=== PATIENT | male | born 1960 | race Caucasian/White ===

== ENCOUNTER 2017-03-03 20:43 | Emergency (ER) | payer OTHER ==
[2017-03-03] MEDS ORDERED: HYDROcodone/ACETAMIN 5-325 MG* 1 TAB PO ONE (21:04)
--- NOTE | 2017-03-03 21:15 | UC ---
Truncal Trauma HPI - HPI Summary HPI Summary: Fell into farm equipment this evening, scraped L lateral abdomen and injured L anterior chest. Pain with cough, deep breaths, movement, and sneezing. Denies feeling SOB. Has been off plavix for more than 2 weeks because he just got endoscopy done and is getting colonoscopy done later this month. - History Of Current Complaint Chief Complaint: UCChestPain Stated Complaint: FELL-LFT RIB AREA PAIN Time Seen by Provider: 03/03/17 20:50 Hx Obtained From: Patient Onset/Duration: Sudden Onset Onset Of Pain: Immediate Severity Initially: Moderate Severity Currently: Moderate Mechanism Of Injury: Direct Blow, Fall From A Standing Position Aggravating Factor(s): Movement, Deep Breathing, Cough Alleviating factor(s): Ice, Compression, Shallow Breathing Associated Signs And Symptoms: Negative: Fever, Nausea - Allergies/Home Medications Allergies/Adverse Reactions: Allergies Allergy/AdvReac Type Severity Reaction Status Date / Time Bee Venom Allergy Swelling Verified 03/03/17 20:56 Pseudoephedrine Allergy Rash And Verified 03/03/17 20:56 [From Sudafed] Itching Vinegar AdvReac Vomiting Uncoded 03/03/17 20:56 Home Medications: Home Medications Albiglutide [Tanzeum] 30 mg SC WEEKLY 03/03/17 [History Confirmed 03/03/17] Metformin HCl [Glucophage] 1,000 mg PO BID 03/03/17 [History Confirmed 03/03/17] PMH/Surg Hx/FS Hx/Imm Hx Endocrine History Of: Reports: Diabetes Denies: Thyroid Disease Cardiovascular History Of: Reports: Cardiac Disorders, Hypertension Denies: Pacemaker/ICD Respiratory History Of: Reports: Asthma Denies: COPD GI/ History Of: Denies: Ulcer - Surgical History Surgical History: Yes Surgery Procedure, Year, and Place: Left shoulder repair 2004 ([place]), Hernia repair 1999, cardiac angiogram early to mid . Cardiac Stint 2014. RIGHT SHOULDER SX - Family History Known Family History: Positive: Cardiac Disease, Hypertension, Diabetes, Respiratory Disease - Asthmna. Negative: Other - GOUT - Social History Lives: With Family Alcohol Use: Rare Substance Use Type: None Smoking Status (MU): Former Smoker Type: Cigarettes Amount Used/How Often: 3 PPD Length of Time of Smoking/Using Tobacco: 30 Years Have You Smoked in the Last Year: No When Did the Patient Quit Smoking/Using Tobacco: 1976 - Immunization History Most Recent Influenza Vaccination: no Review of Systems Constitutional: Negative Skin: Negative Eyes: Negative ENT: Negative Respiratory: Negative Cardiovascular: Negative Gastrointestinal: Negative Genitourinary: Negative Motor: Negative Neurovascular: Negative Musculoskeletal: Arthralgia - L ribs Neurological: Negative Psychological: Negative All Other Systems Reviewed And Are Negative: Yes Physical Exam Triage Information Reviewed: Yes Appearance: Pain Distress - with cough, movement, Obese Vital Signs: Initial Vital Signs Temp 98.3 F 03/03/17 20:48 Pulse 73 03/03/17 20:48 Resp 18 03/03/17 20:48 Pulse Ox 98 03/03/17 20:48 Vital Signs Reviewed: Yes Eye Exam: Normal Eyes: Positive: Conjunctiva Clear ENT Exam: Normal ENT: Positive: Normal ENT inspection, Hearing grossly normal, Pharynx normal, TMs normal Dental Exam: Other - edentulous on top Neck exam: Normal Neck: Positive: Supple, Nontender, No Lymphadenopathy Respiratory: Positive: No respiratory distress. Negative: Chest non-tender - L anterior chest tenderness Cardiovascular Exam: Normal, Other - exam limited by obesity Cardiovascular: Positive: RRR Musculoskeletal Exam: Other - anterior chest wall pain with indirect stress Musculoskeletal: Positive: Strength Intact, ROM Intact Neurological Exam: Normal Neurological: Positive: Alert Psychological Exam: Normal Skin Exam: Other - large abrasion L abdomen Truncal Trauma Course/Dx - Differential Dx/Diagnosis Provider Diagnoses: L anterior rib fracture Discharge - Discharge Plan Condition: Stable Disposition: HOME Prescriptions: HYDROcodone/ACETAMIN 5-325 MG* [[place] 5-325 TAB*] 1 tab PO Q4H PRN #30 tab MDD 6 PRN Reason: Pain Patient Education Materials: Rib Fracture (ED) Referrals: TRENTON Mendoza [Primary Care Provider] - Additional Instructions: Your rib x-rays were read as normal (no broken ribs), but your pain level suggests you may have a small bony injury in your chest. Please call your GI doctor and/or your primary care provider to find out if you can take naproxen for your pain as well. Keep walking around and take as many deep breaths as you can stand.
--- NOTE | 2017-03-03 21:37 | RAD ---
INDICATION: Left rib injury. TECHNIQUE: 4 views of the left ribs and dual-energy PA views of the chest were obtained. FINDINGS: No fracture or significant focal osseous abnormality is seen. The heart is within normal limits in size. The lungs are clear. There is no evidence for pneumothorax or pleural effusion. IMPRESSION: NO EVIDENCE FOR FRACTURE.
== END 2017-03-03 21:43 | disposition home or self-care (01) ==
LOC: UCCORT 20:43
DX: S29.9XXA Unspecified injury of thorax, initial encounter (principal); W18.09XA Striking against other object with subsequent fall, initial encounter; Y93.9 Activity, unspecified; Y92.9 Unspecified place or not applicable; E11.9 Type 2 diabetes mellitus without complications; Z79.84 Long term (current) use of oral hypoglycemic drugs; I10 Essential (primary) hypertension; J45.909 Unspecified asthma, uncomplicated; E66.9 Obesity, unspecified; Z88.8 Allergy status to other drugs, medicaments and biological substances; Z91.030 Bee allergy status; Z87.891 Personal history of nicotine dependence
CPT/HCPCS: 99212; G0463

== ENCOUNTER 2017-08-21 19:00 | Emergency (ER) | payer OTHER ==
[2017-08-21 19:31] VITALS: BP 117/73
[2017-08-21] MEDS ORDERED: Ibuprofen TAB* 600 MG PO ONE (19:42)
--- NOTE | 2017-08-21 19:44 | UC ---
Lower Extremity/Ankle HPI - HPI Summary HPI Summary: 56 yo male injured left ankle today eileen gifford fell and hit his ankle unable to bear wt - History of Current Complaint Chief Complaint: UCLowerExtremity Stated Complaint: LEFT ANKLE INJURY Time Seen by Provider: 08/21/17 19:39 Hx Obtained From: Patient Onset/Duration: Sudden Onset, Lasting Hours Severity Initially: Moderate Severity Currently: Moderate Pain Intensity: 6 Pain Scale Used: 0-10 Numeric Aggravating Factor(s): Standing, Ambulation Alleviating Factor(s): Rest, Elevation Able to Bear Weight: No - Allergies/Home Medications Allergies/Adverse Reactions: Allergies Allergy/AdvReac Type Severity Reaction Status Date / Time Bee Venom Allergy Swelling Verified 08/21/17 19:33 Pseudoephedrine Allergy Rash And Verified 08/21/17 19:33 [From Sudafed] Itching Vinegar AdvReac Vomiting Uncoded 08/21/17 19:33 Home Medications: Home Medications Multiple Vitamins W/ Minerals [Multivitamin Adult] 2 chw PO QAM 08/21/17 [ History Confirmed 08/21/17] Multiple Vitamins W/ Minerals [Multivitamin Adults] 1 tab PO DAILY 08/21/17 [ History Confirmed 08/21/17] PMH/Surg Hx/FS Hx/Imm Hx Previously Healthy: Yes Cardiovascular History: Hypertension Respiratory History: Asthma - Surgical History Surgical History: Yes Surgery Procedure, Year, and Place: Left shoulder repair 2004 ([place]), Hernia repair 1999, cardiac angiogram early to mid ; gastric bypass . Cardiac Stent 2014. RIGHT SHOULDER SX - Family History Known Family History: Positive: Cardiac Disease, Hypertension, Diabetes, Respiratory Disease - Asthmna. Negative: Other - GOUT - Social History Alcohol Use: None Substance Use Type: None Smoking Status (MU): Former Smoker Type: Cigarettes Amount Used/How Often: 3 PPD Length of Time of Smoking/Using Tobacco: 30 Years Have You Smoked in the Last Year: No When Did the Patient Quit Smoking/Using Tobacco: 1976 - Immunization History Most Recent Influenza Vaccination: no Review of Systems Constitutional: Negative Skin: Negative Eyes: Negative ENT: Negative Respiratory: Negative Cardiovascular: Negative Gastrointestinal: Negative Genitourinary: Negative Motor: Negative Neurovascular: Negative Musculoskeletal: Arthralgia Neurological: Negative Psychological: Negative Is Patient Immunocompromised?: No All Other Systems Reviewed And Are Negative: Yes Physical Exam Triage Information Reviewed: Yes Appearance: Well-Appearing, No Pain Distress, Well-Nourished Vital Signs: Initial Vital Signs Temp 98.3 F 08/21/17 19:25 Pulse 72 08/21/17 19:25 Resp 24 08/21/17 19:25 BP 117/73 08/21/17 19:25 Vital Signs Reviewed: Yes Eyes: Positive: Conjunctiva Clear ENT: Positive: Hearing grossly normal Dental Exam: Normal Neck: Positive: Supple, Nontender, No Lymphadenopathy Respiratory: Positive: Lungs clear, Normal breath sounds, No respiratory distress, No accessory muscle use Cardiovascular: Positive: RRR, No Murmur, Pulses Normal Abdomen Description: Positive: Nontender, No Organomegaly, Soft Musculoskeletal: Positive: ROM Limited @, Edema @ - MM Neurological: Positive: Alert Psychological Exam: Normal Skin Exam: Normal Diagnostics - Radiology No standard instances Xray Interpretation: No Acute Changes Radiology Interpretation Completed By: Radiologist Lower Extremity Course/Dx - Course Course Of Treatment: alfred applied by me - Differential Dx/Diagnosis Provider Diagnoses: left ankle contusion Discharge - Discharge Plan Condition: Stable Disposition: HOME Patient Education Materials: Crutch Instructions (ED), Contusion in Adults (ED) , RICE Therapy (ED) Referrals: Catherine Pérez MD [Primary Care Provider] - Additional Instructions: recheck in 1-2 weeks if not better
--- NOTE | 2017-08-21 20:08 | RAD ---
INDICATION: Left ankle injury COMPARISON: None TECHNIQUE: AP, lateral, and oblique views were obtained. FINDINGS: There is medial soft tissue swelling. There is no acute fracture. Ankle mortise is intact. There are vascular calcifications. IMPRESSION: MEDIAL SOFT TISSUE SWELLING. NO ACUTE BONY FINDINGS
== END 2017-08-21 20:48 | disposition home or self-care (01) ==
LOC: UCCORT 19:00
DX: S90.02XA Contusion of left ankle, initial encounter (principal); I10 Essential (primary) hypertension; W22.8XXA Striking against or struck by other objects, initial encounter; Z87.891 Personal history of nicotine dependence; Z91.030 Bee allergy status; Z88.8 Allergy status to other drugs, medicaments and biological substances; Z91.048 Other nonmedicinal substance allergy status
CPT/HCPCS: 99212; A9270-GY; G0463

== ENCOUNTER 2017-09-19 20:10 | Emergency (ER) | payer OTHER ==
[2017-09-19 20:44] VITALS: BP 140/85
--- NOTE | 2017-09-19 20:44 | UC ---
Skin Complaint HPI - HPI Summary HPI Summary: 57 YEAR OLD FEMALE PRESENTS WITH COMPLAINS OF SEVERE DRY CRACKED HANDS. - History of Current Complaint Time Seen by Provider: 09/19/17 20:44 Stated Complaint: HANDS DRY AND SKIN CRACKING Hx Obtained From: Patient Onset/Duration: Sudden Onset Onset Severity: Moderate Current Severity: Moderate - Allergy/Home Medications Allergies/Adverse Reactions: Allergies Allergy/AdvReac Type Severity Reaction Status Date / Time Bee Venom Allergy Swelling Verified 09/19/17 20:44 Pseudoephedrine Allergy Rash And Verified 09/19/17 20:44 [From Sudafed] Itching Vinegar AdvReac Vomiting Uncoded 09/19/17 20:44 Review of Systems Constitutional: Negative Skin: Other - DRY AND CRACKED HANDS Eyes: Negative ENT: Negative Respiratory: Negative Cardiovascular: Negative Gastrointestinal: Negative Genitourinary: Negative Motor: Negative Neurovascular: Negative Musculoskeletal: Negative Neurological: Negative Psychological: Negative All Other Systems Reviewed And Are Negative: Yes PMH/Surg Hx/FS Hx/Imm Hx - Surgical History Surgical History: Yes Surgery Procedure, Year, and Place: Left shoulder repair 2004 ([place]), Hernia repair 1999, cardiac angiogram early to mid ; gastric bypass . Cardiac Stent 2014. RIGHT SHOULDER SX - Family History Known Family History: Positive: Cardiac Disease, Hypertension, Diabetes, Respiratory Disease - Asthmna. Negative: Other - GOUT - Social History Alcohol Use: None Substance Use Type: None Smoking Status (MU): Former Smoker Type: Cigarettes Amount Used/How Often: 3 PPD Length of Time of Smoking/Using Tobacco: 30 Years Have You Smoked in the Last Year: No When Did the Patient Quit Smoking/Using Tobacco: 1976 - Immunization History Most Recent Influenza Vaccination: no Physical Exam Triage Information Reviewed: Yes Vital Signs: Initial Vital Signs Temp 36.6 C 09/19/17 20:34 Pulse 61 09/19/17 20:34 Resp 22 09/19/17 20:34 BP 140/85 09/19/17 20:34 Vital Signs Reviewed: Yes Eye Exam: Normal ENT Exam: Normal Dental Exam: Normal Neck exam: Normal Neck: Positive: 1 Respiratory Exam: Normal Cardiovascular Exam: Normal Abdominal Exam: Normal Musculoskeletal Exam: Normal Neurological Exam: Normal Psychological Exam: Normal Skin: Positive: Other - DRY AND CRACKED HANDS Course/Dx - Diagnoses Provider Diagnoses: DRY AND CRACKED HANDS. ECZEMA Discharge - Discharge Plan Condition: Stable Disposition: HOME Prescriptions: Betamethasone Anna 0.1% ON(NF) [Betamethasone Anna 0.1% OINT(NF)] 1 applic TOPICAL TID PRN #90 gm PRN Reason: Pain Methylprednisolone [Medrol Dosepak 4 MG*] 4 mg PO .SEE GALLO INSTRUCTION #21 tab Referrals: TRENTON Mendoza [Primary Care Provider] - Doris Reeves [Medical Doctor] -
[2017-09-19] MEDS ORDERED: predniSONE TAB* 20 MG PO ONE (21:05)
[2017-09-19] MEDS ORDERED: Hydrocortisone 1% CREAM* 30 GM TUBE TOPICAL ONE (21:06)
== END 2017-09-19 21:21 | disposition home or self-care (01) ==
LOC: UCCORT 20:10
DX: L85.3 Xerosis cutis (principal); L30.9 Dermatitis, unspecified; Z95.5 Presence of coronary angioplasty implant and graft; Z98.84 Bariatric surgery status; Z87.891 Personal history of nicotine dependence
CPT/HCPCS: 99213; A9270-GY; G0463; J7512

== ENCOUNTER 2017-10-31 18:33 | Emergency (ER) | payer OTHER ==
[2017-10-31 19:07] VITALS: BP 121/68
--- NOTE | 2017-10-31 20:31 | RAD ---
INDICATION: Cough COMPARISON: Chest x-ray September 28, 2010 TECHNIQUE: PA and lateral dual-energy views were obtained. FINDINGS: Bones/Soft Tissues: There are no acute bony findings. Cardiomediastinal: The cardiomediastinal silhouette is normal. Lungs: There are no infiltrates. Pleura: There are no pleural effusions. Other: None IMPRESSION: NO ACTIVE DISEASE.
[2017-10-31] MEDS ORDERED: methylPREDNISolone 125 MG* 2 ML VIAL IM ONE (20:47)
--- NOTE | 2017-11-08 14:03 | ED ---
Respiratory - HPI Summary HPI Summary: 57 year old female presents with lower back spasms secondary to severe productive cough. - History of Current Complaint Chief Complaint: UCBackPain Stated Complaint: COUGH Time Seen by Provider: 10/31/17 19:38 Hx Obtained From: Patient Onset/Duration: Sudden Onset Timing: Constant Initial Severity: Moderate Current Severity: Moderate Pain Intensity: 4 Character: Cough (Productive) Sputum Amount: Small Sputum Color: Yellow - Allergy/Home Medications Allergies/Adverse Reactions: Allergies Allergy/AdvReac Type Severity Reaction Status Date / Time Bee Venom Allergy Swelling Verified 10/31/17 19:07 Pseudoephedrine Allergy Rash And Verified 10/31/17 19:07 [From Sudafed] Itching Vinegar AdvReac Vomiting Uncoded 10/31/17 19:07 PMH/Surg Hx/FS Hx/Imm Hx Previously Healthy: Yes Endocrine/Hematology History: Reports: Hx Diabetes - no insulin Denies: Hx Thyroid Disease Cardiovascular History: Reports: Hx Hypertension Denies: Hx Pacemaker/ICD Respiratory History: Reports: Hx Asthma, Other Respiratory Problems/Disorders - Hx asthma Denies: Hx Chronic Obstructive Pulmonary Disease (COPD) GI History: Reports: Other GI Disorders - Hx GERD Denies: Hx Ulcer Sensory History: Denies: Hx Hearing Aid Psychiatric History: Denies: Hx Panic Disorder - Surgical History Surgery Procedure, Year, and Place: Left shoulder repair 2004 ([place]), Hernia repair 1999, cardiac angiogram early to mid ; gastric bypass . Cardiac Stent 2014. RIGHT SHOULDER SX Infectious Disease History: No Infectious Disease History: Denies: Hx Clostridium Difficile, Hx Hepatitis, Hx Human Immunodeficiency Virus (HIV), Hx of Known/Suspected MRSA, Hx Shingles, Hx Tuberculosis, Hx Known/ Suspected VRE, Hx Known/Suspected VRSA, History Other Infectious Disease, Traveled Outside the [place] in Last 30 Days - Family History Known Family History: Positive: Cardiac Disease, Hypertension, Diabetes, Respiratory Disease - Asthmna. Negative: Other - GOUT - Social History Alcohol Use: None Substance Use Type: Reports: None Smoking Status (MU): Former Smoker Type: Cigarettes Amount Used/How Often: 3 PPD Length of Time of Smoking/Using Tobacco: 30 Years Have You Smoked in the Last Year: No Review of Systems Constitutional: Negative Eyes: Negative ENT: Negative Cardiovascular: Negative Positive: Cough Gastrointestinal: Negative Genitourinary: Negative Musculoskeletal: Negative Skin: Negative Neurological: Negative Psychological: Normal All Other Systems Reviewed And Are Negative: Yes Physical Exam Triage Information Reviewed: Yes Vital Signs On Initial Exam: Initial Vitals Temp Pulse Resp BP Pulse Ox 37.3 C 55 18 121/68 99 10/31/17 19:01 10/31/17 19:01 10/31/17 19:01 10/31/17 19:01 10/31/17 19:01 Appearance: Positive: Ill-Appearing Skin: Positive: Warm Head/Face: Positive: Normal Head/Face Inspection Eyes: Positive: Normal ENT: Positive: Normal ENT inspection Neck: Positive: Supple Respiratory/Lung Sounds: Positive: Clear to Auscultation, Decreased Breath Sounds, Wheezes Cardiovascular: Positive: Normal Abdomen Description: Positive: Nontender Bowel Sounds: Positive: Present Musculoskeletal: Positive: Other - lower back spasm/pain Neurological: Positive: Normal Diagnostics - Vital Signs Vital Signs Temp Pulse Resp BP Pulse Ox 10/31/17 19:01 37.3 C 55 18 121/68 99 - Laboratory Lab Statement: Any lab studies that have been ordered have been reviewed, and results considered in the medical decision making process. Disposition - Diagnoses Provider Diagnoses: Back muscle spasm, Cough in adult Discharge - Discharge Plan Condition: Stable Disposition: HOME Prescriptions: Azithromyxin GALLO (NF) [Z-Gallo (Zithromax) 250 mg tabs #6] 2 tab PO .TODAY, THEN 1 DAILY #6 tab Benzonatate CAP* [Tessalon 100 MG CAP*] 100 mg PO TID PRN #30 cap PRN Reason: Cough Methocarbamol TAB* [Robaxin 500 MG TAB*] 500 mg PO TID PRN #30 tab PRN Reason: Spasms Methylprednisolone [Medrol Dosepak 4 MG*] 4 mg PO .SEE GALLO INSTRUCTION #21 tab Patient Education Materials: Muscle Spasm (ED), Acute Cough (ED) Referrals: TRENTON Mendoza [Primary Care Provider] -
== END 2017-10-31 21:26 | disposition home or self-care (01) ==
LOC: UCCORT 18:33
DX: M62.830 Muscle spasm of back (principal); R05 Cough; E11.9 Type 2 diabetes mellitus without complications; I10 Essential (primary) hypertension; J45.909 Unspecified asthma, uncomplicated; K21.9 Gastro-esophageal reflux disease without esophagitis; Z98.84 Bariatric surgery status; Z95.5 Presence of coronary angioplasty implant and graft; Z87.891 Personal history of nicotine dependence
CPT/HCPCS: 71046; 96372; 99212; G0463; J2930

== ENCOUNTER 2017-12-12 20:17 | Emergency (ER) | payer OTHER ==
--- OUTSIDE RECORDS SUMMARY | 2017-12-12 20:38 | XMS REPORT ---
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 Active Onset: 12/06/2017 Type 2 diabetes mellitus Ed Guerrero M.D. Active Family History Date Family Member(s) Problem(s) Comments Father Colon Cancer Mother Bone Cancer Social History Type Date Description Comments Marital Status Occupation Unemployed Cigarette Use 12/06/2017 Former Cigarette Smoker ETOH Use 5 per day Daily Caffeine Occasional Caffeine Intake Allergies, Adverse Reactions, Alerts Date Description Reaction Status Severity Comments 02/15/2015 NKDA active 02/15/2015 Bee Stings unknown active 02/15/2015 Vinegar unknown active Medications Medication Date Status Form Strength Qnty SIG Indications Ordering Provider Fenofibrate Active Capsules 134mg Take 1 Unknown Micronized /0000 Capsule By Mouth Once Daily Tamsulosin HCL Active Capsules 0.4mg Take One Unknown /0000 Capsule By Mouth 30 Minutes After Supper Metoprolol Active Tablets 25mg Take 1 Tablet Unknown Tartrate /0000 By Mouth Twice A Day Simvastatin Active Tablets 20mg Unknown /0000 Aspir-81 Active Tablets 81mg 1 by mouth Unknown /0000 DR every day [facility] Vitamin D Active Capsules 2000Unit Elder, /0000 Pamelalauren Matt N.P. Omeprazole Active Capsules 40mg Take One Unknown /0000 DR Capsule By Mouth Every Day Meloxicam Active Tablets 7.5mg Unknown /0000 Oxybutynin Active Tablets 5mg Take 1 Tablet Unknown Chloride ER /0000 ER 24HR Every Day Clopidogrel Active Tablets 75mg Take 1 Tablet Unknown Bisulfate /0000 By Mouth Every Day Nitroglycerin Active Tablets 0.4mg Take 1 Tablet Unknown /0000 Sub Sublingually Every 5 Minutes as Needed For Chest Pain, M Atorvastatin Active Tablets 40mg Villapiano, Calcium 0000 MD Glenis Metformin HCL Active Tablets 1000mg Olaremicheleju, Catherine Jose SESAY Meclizine HCL Active Tablets 25mg Take 1 Tablet Unknown /0000 By Mouth 3 Times A Day as Needed For Nausea Ciprofloxacin 11/23 Hx Tablets 500mg 28tab 1 by mouth YULIET Guerrero s twice a day x Ed Rangel, - 14d M.DKishan 11/28 Doxycycline 05/18 Hx Tablets 100mg 28tab 1 by mouth 604.90-2 Jossy Guerrero s twice a day Ed Rangel, - MKishanDKishan 11/22 Vitamin D Hx Capsules 14300Ffxe Elder, (Ergocalcifero /0000 Pamela Vernell l) - N.P. 04/13 Invokana Hx Tablets 300mg Take 1 Tablet Unknown /0000 By Mouth - Every Day 12/04 Metformin HCL 0000 Hx Tablets 1000mg Take 1 Tablet Unknown /0000 By Mouth - Twice A Day 11/22 Lisinopril Hx Tablets 20mg Take 1 Tablet Unknown /0000 By Mouth - Every Day - 12/04 Patient Due For Follow-Up And [place] Glipizide Hx Tablets 10mg Take 1 Tablet Unknown /0000 By Mouth - Twice A Day 11/22 Metformin HCL 00/00 Hx Tablets 750mg Elder, ER /0000 ER 24HR Pamela Matt - N.P. 11/22 Meclizine HCL 00 Hx Tablets 25mg Take 1 Tablet Unknown /0000 By Mouth 3 - Times A Day 11/22 Ventolin HFA Hx Aerosol 108(90Bas Inhale 2 Unknown /0000 e) Puffs By - mcg/Act Mouth Every 4 11/22 To 6 Hours Needed Isosorbide Hx Tablets 30mg Take 1 Tablet Unknown Mononitrate ER /0000 ER 24HR By Mouth - Every Day 11/22 Victoza Hx Solution 18mg/3ML Inject 1.8MG Unknown /0000 Pen-Injec Subcutaneousl - t y Daily. 11/22 Lantus Hx Solution 100Unit/M Inject 112 Unknown Solostar /0000 Pen-Injec L Usq Every - t Morning 11/22 .Increase 2 U Every 3 Days Until Fasti Tanzeum Hx Pen 30mg Inject Once Unknown /0000 Subcutaneousl - y Every Week 12/03 Humalog Hx Solution 100Unit/M 15 units Unknown /0000 L three times - per day 12/04 Metoprolol Hx Tablets 50mg Villapiano, Succinate ER /0000 ER 24HR MD Glenis - 12/04 Vital Signs Date Vital Result Comment 12/06/2017 Height 67 inches 5'7" Weight 201.00 lb Weight in kg's 91.174 BMI (Body Mass Index) 31.5 kg/m2 BP Systolic 124 mmHg BP Diastolic 76 mmHg Heart Rate 57 /min 11/22/2016 Height 67 inches 5'7" Weight 288.00 lb Weight in kg's 130.637 BMI (Body Mass Index) 45.1 kg/m2 BP Systolic 132 mmHg left wrist audio BP Diastolic 93 mmHg left wrist audio Heart Rate 72 /min Body Temperature 97.0 F Post Void Residual ml 25 Indication:, Ultrasound oscar 02/15/2015 Height 67 inches 5'7" Weight 272.00 lb Weight in kg's 123.379 BMI (Body Mass Index) 42.6 kg/m2 BP Systolic 115 mmHg right wrist audio BP Diastolic 82 mmHg right wrist audio Heart Rate 93 /min Body Temperature 97.8 F Results Test Date Test Result H/L Range Note 230 Ua Routine 12/06/2017 Ua Glucose Negative Ua Protein Negative Ua Nitrite Negative Ua Leuko Negative Ua Blood Negative Ua Color Yellow Ua Ketones Negative Ua Clarity Clear Ua Specific [place] 1.025 1.003-1.030 Ua PH 5.5 5.0-7.5 Ua Bilirubin 1+ Ua Urobilinogen 1.0 E.U./dL 0.0-1.0 Laboratory test finding 12/06/2017 Total Psa Only 1.79 ng/mL 0.00-4.00 Laboratory test finding 01/26/2017 Total Psa Only 0.90 ng/mL 0.00-4.00 Urine Microscopy 11/22/2016 Urine WBC 3-5 /HPF 0 - 5 Urine RBC 0-2 /HPF 0-2 Bacteria RARE /HPF Neg Crystals neg /HPF Neg Epithelial Cells RARE /HPF Neg Sperm NEG /HPF Neg Yeast NEG /HPF Neg Laboratory test finding 11/22/2016 Prostate Specific 7.68 ng/mL High < 4.0 1, 2 Antigen Testosterone,Serum 336 ng/dL Low 348-1197 1 Testosterone,Serum 11/22/2016 Comment (SEE NOTE) 1, 3 230 Ua Routine 11/22/2016 Ua Glucose 3+ Ua Protein Negative Ua Nitrite Negative Ua Leuko Negative Ua Blood Trace-intact Ua Color yellow Ua Ketones Negative Ua Clarity clear Ua Specifici [place] <=1.005 1.003-1.030 Ua PH 5.5 5.0-7.5 Ua Bilirubin Negative Ua Urobilinogen 0.2 E.U./dL 0.0-1.0 CBC W/O Diff 05/10/2015 Hemoglobin 16 12.5-17.9 Hematocrit 47.2 36.5-50.1 BUN And Creatinine 05/10/2015 BUN - Urea Nitrogen 20 7-26 Creatinine 0.8 0.6-1.0 Electrolytes 04/16/2015 Miscellaneous Test 135 Low 136-145 BUN And Creatinine 04/16/2015 BUN - Urea Nitrogen 21 High 7-18 Creatinine 0.9 0.6-1.3 #Ua Routine 04/14/2015 Ua Glucose 2+ Ua Protein Negative Ua Nitrite Negative Ua Leuko Negative Ua Blood Negative Ua Color yellow Ua Ketones Negative Ua Clarity clear Ua Specific [place] 1.010 1.003-1.030 Ua PH 5.0 5.0-7.5 Ua Bilirubin Negative Ua Urobilinogen 0.2 E.U./dL 0.0-1.0 #Ua Routine 03/10/2015 Ua Glucose 2+ Ua Protein Negative Ua Nitrite Negative Ua Leuko Negative Ua Blood Negative Ua Color yellow Ua Ketones Negative Ua Clarity clear Ua Specific [place] 1.010 1.003-1.030 Ua PH 5.0 5.0-7.5 Ua Bilirubin Negative Ua Urobilinogen 0.2 E.U./dL 0.0-1.0 #Ua Routine 02/15/2015 Ua Glucose 2+ Ua Protein Negative Ua Nitrite Negative Ua Leuko Negative Ua Blood Negative Ua Color yellow Ua Ketones Negative Ua Clarity clear Ua Specific [place] 1.010 1.003-1.030 Ua PH 5.0 5.0-7.5 Ua Bilirubin Negative Ua Urobilinogen 0.2 E.U./dL 0.0-1.0 BUN And Creatinine 12/23/2014 BUN - Urea Nitrogen 20 High 7-18 Creatinine 1.0 0.6-1.3 CBC W/O Diff 09/10/2014 Hemoglobin 16.2 12.8-17 Hematocrit 48 38-48 BUN And Creatinine 09/10/2014 BUN - Urea Nitrogen 15 7-18 Creatinine 0.9 0.6-1.3 Laboratory test finding 09/10/2014 PSA Total 1.22 Laboratory test finding 02/20/2005 PSA Total 1.0 0-4.0 Laboratory test finding 12/18/2002 PSA Total 0.8 0-4.0 Laboratory test finding 12/05/2000 PSA Total 0.8 0-4.0 1 N40.1 2 THIS ASSAY IS NOT INTENDED A CANCER SCREENING TEST The concentration of PSA in a given specimen, determined with assays from different manufacturers, can vary due to differences in assay methods and reagent specificity. Values obtained from different assay methods cannot be used interchangeably. Method: Siemens BIMA Magnolia Chemiluminescent immunoassay. 3 Adult male reference interval is based on a population of lean males up to 40 years old. Performed at: RN - [facility] [address] [id number] End Trimmer: Nayana Bhardwaj MD, Phone: [phone] Procedures Date CPT Code Description Status 11/22/2016 98254 Bladder Scan, Post Voiding Residual Urine Completed 11/23/2015 98772 Bladder Scan, Post Voiding Residual Urine Completed 05/24/2015 92436 Genitalia; Ultrasound, Scrotum And Contents Completed 05/12/2015 25989 Urodynamics, Voiding Pressure Studies Intra Abdominal Completed Global 05/12/2015 57585 Urodynamics, Electromyography Studies EMG Of Anal Or Completed Urethral S 05/12/2015 78212 Urodynamics, Complex Uroflowmetry Eg Calibrated Completed Electronic Office 05/12/2015 19405 Complex Cystometrogram, With Voiding Pressure Studies Completed Global 04/14/2015 75011 Bladder Scan, Post Voiding Residual Urine Completed 03/10/2015 89921 Bladder Scan, Post Voiding Residual Urine Completed Encounters Type Date Location Provider CPT E/M Dx Office Visit 11/22/2016 9:00a Johnny/Gertrude.MKelly Egan, APPRENTICE PHOTOGRAPHER/[place] [address] R35.1 Urology R35.0 R39.14 N40.1 Office Visit 11/23/2015 1:30p Johnny/Gertrude.M.PKishan Urology Ed Guerrero, 56735 R35.1 M.D. R35.0 R39.14 N40.1 Office Visit 06/02/2015 1:20p Johnny/Gertrude.MKishanPKishan Urology Ed Guerrero [address] 604.90-2 René Rangel 788.41 788.21 788.4-1 Office Visit 05/18/2015 1:10p Johnny/Gertrude.M.PKishan Urology Ed Guerrero, [address]7039 788.41 M.D. 788.4-1 788.31 788.21 604.90-2 Office Visit 04/14/2015 1:10p Johnny/Gertrude.MKishanPKishan Urology Ed Guerrero, [address]409 788.41 M.D. 788.4-1 788.31 788.21 Office Visit 03/10/2015 3:00p Johnny/Gertrude.M.PKishan Urology Ed Guerrero, 09524 788.41 M.D. 788.4-1 788.31 Office Visit 02/15/2015 2:20p Johnny/Gertrude.M.PKishan Urology Ed Guerrero, 02690 788.41 M.D. 788.4-1 788.31 Plan of Care Future Appointment(s):11/29/2018 3:45 pm - Johnny Nurse at [facility] Ygpoxvf7712/05/2018 4:00 pm - Jean Todd PRico at [facility] Rabkqxg1412/06/2017 - Jean Todd PRicoN40.1 Benign prostatic hyperplasia with lower urinary tract sympComments:We'll await for refills.Z12.5 Encounter for screening for malignant neoplasm of prostateComments:PSA 1.79. Exam benign. Follow-up 12 months
[2017-12-12 21:03] VITALS: BP 127/80
--- NOTE | 2017-12-12 21:27 | UC ---
HPI Wound/Suture Re-check - HPI Summary HPI Summary: pt cut his L palm with a box knife on 12/08/16. he went to the [facility] er where they sutured the wound. today, the site began to swell and turn painful. he denies fever, loss of function and FB sensation. Denies risk for any FB. States hands are stained but hand clean at time of injury. Site has been covered since except for cleaning it. Tetanus is within 10 years. - History Of Current Complaint Chief Complaint: SOLANGEkin Stated Complaint: LACERATION RECHECK Time Seen by Provider: 12/12/17 21:03 Hx Obtained From: Patient Onset/Duration: Gradual Onset Pain Intensity: 7 - Allergies/Home Medications Allergies/Adverse Reactions: Allergies Allergy/AdvReac Type Severity Reaction Status Date / Time bee venom protein (honey bee) Allergy Unknown Swelling Verified 12/12/17 20:48 pseudoephedrine Allergy Unknown Hives Verified 12/12/17 20:48 [From Sudafed] Vinegar AdvReac Vomiting Uncoded 10/31/17 19:07 Home Medications: Home Medications Calcium Carbonate/Vitamin D3 [Calcium 600 + Vit D Tablet] 1 each PO DAILY [History Confirmed 12/12/17] Cyanocobalamin (Vitamin B-12) [Vitamin B-12] 500 mcg PO 12/12/17 [History] Metoprolol Succinate [Toprol Xl] 50 mg PO DAILY 12/12/17 [History Confirmed ] PMH/Surg Hx/FS Hx/Imm Hx Endocrine History: Diabetes Respiratory History: Asthma - Surgical History Surgical History: Yes Surgery Procedure, Year, and Place: Left shoulder repair 2004 ([place]), Hernia repair 1999, cardiac angiogram early to mid ; gastric bypass . Cardiac Stent 2014. RIGHT SHOULDER SX - Family History Known Family History: Positive: Cardiac Disease, Hypertension, Diabetes, Respiratory Disease - Asthmna. Negative: Other - GOUT - Social History Occupation: Employed Full-time Lives: With Family Alcohol Use: None Substance Use Type: None Smoking Status (MU): Former Smoker Type: Cigarettes Amount Used/How Often: 3 PPD Length of Time of Smoking/Using Tobacco: 30 Years Have You Smoked in the Last Year: No When Did the Patient Quit Smoking/Using Tobacco: 1976 - Immunization History Most Recent Influenza Vaccination: no Most Recent Tetanus Shot: 2012 Review of Systems Constitutional: Negative Skin: Other - Mild swelling, red, pain L palm suture site Eyes: Negative ENT: Negative Respiratory: Negative Cardiovascular: Negative Gastrointestinal: Negative Genitourinary: Negative Motor: Negative Neurovascular: Negative Musculoskeletal: Negative Neurological: Negative Psychological: Negative All Other Systems Reviewed And Are Negative: Yes Physical Exam Triage Information Reviewed: Yes Appearance: Well-Appearing Vital Signs: Initial Vital Signs Temp 98.7 F 12/12/17 20:56 Pulse 58 12/12/17 20:56 Resp 18 12/12/17 20:56 BP 127/80 12/12/17 20:56 Pulse Ox 99 12/12/17 20:56 Vital Signs Reviewed: Yes Eyes: Positive: Conjunctiva Clear ENT: Positive: Normal ENT inspection Neck: Positive: Supple Respiratory: Positive: Lungs clear, Normal breath sounds Cardiovascular: Positive: RRR, No Murmur Abdomen Description: Positive: Nontender, No Organomegaly, Soft Bowel Sounds: Positive: Present Musculoskeletal: Positive: Other: - L thenar area with 5 stitches and mild swelling, tenderness and faintly pink around the site. No drainage. scant dry blood on stitches. hand has full s/v/m function Neurological: Positive: Alert Psychological: Positive: Normal Response To Family, Age Appropriate Behavior Skin Exam: Normal Procedures - Procedure Summary Procedure Summary: 2 of 5 sutures removed in the event pt develops drainage at site. no drainage here and no odor. bacitracin and dressing applied. pt tolerated well. Course/Dx - Course Course Of Treatment: non toxic. hand has full s/v/m function. 2 of 5 sutures removed incase site develops drainage. will tx keflex and close f/u pcp for recheck. - Differential Dx - Laceration/Wound Provider Diagnoses: Skin infection suture site L palm Discharge - Discharge Plan Condition: Stable Disposition: HOME Prescriptions: Cephalexin CAP* [Keflex CAP*] 500 mg PO TID 10 Days #30 cap Patient Education Materials: Wound Infection (ED) Referrals: TRENTON Mendoza [Primary Care Provider] - 2 Days Additional Instructions: YOU MUST HAVE THE WOUND CHECKED IN 2 DAYS OR SOONER IF WORSENING.
[2017-12-12] MEDS ORDERED: Cephalexin CAP* 500 MG PO ONE (21:39)
== END 2017-12-12 21:48 | disposition home or self-care (01) ==
LOC: UCCORT 20:17
DX: S61.412D Laceration without foreign body of left hand, subsequent encounter (principal); L08.9 Local infection of the skin and subcutaneous tissue, unspecified; E11.9 Type 2 diabetes mellitus without complications; Z87.891 Personal history of nicotine dependence
CPT/HCPCS: 99212; A9270-GY; G0463

== ENCOUNTER 2018-05-14 19:17 | Emergency (ER) | payer OTHER ==
--- OUTSIDE RECORDS SUMMARY | 2018-05-14 19:31 | XMS REPORT ---
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 Active Onset: 12/24/2012 Sore throat symptom Mirza Douglas M.D. Active Onset: 12/24/2012 Difficulty breathing Mirza Douglas M.D. Active Family History Date Family Member(s) Problem(s) Comments General diabetes-mother Social History Type Date Description Comments Marital Status Cigarette Use Used To Smoke Cigarettes But Quit. ETOH Use Rarely consumes alcohol Allergies, Adverse Reactions, Alerts Date Description Reaction Status Severity Comments 12/23/2012 Bee Sting active 12/23/2012 Vinigar active 07/20/2016 Pseudoephedrine active Severe Medications Medication Date Status Form Strength Qnty SIG Indications Ordering Provider Scopolamine 02/15 Active Patches 1mg/3Days 3unit one patch Misael, 72HR s every 72 hour René Blue Ventolin HFA 00 Active Aerosol 108(90Bas 2 puffs every Unknown /0000 e) 4 hours as mcg/Act needed Oxybutynin 00 Active Tablets 5mg 1 by mouth Unknown Chloride ER /0000 ER 24HR every day Atorvastatin 00 Active Tablets 40mg 1 by mouth Unknown Calcium /0000 every day Nitrostat 00 Active Tablets 0.4mg 1 tab sl Unknown /0000 Sub every 5 min x3 chest pain Aspirin 00 Active Tablets 81mg 1 by mouth Unknown /0000 DR every day Clopidogrel 00 Active Tablets 75mg once daily Unknown Bisulfate /0000 Metoprolol Active Tablets 50mg 1 by mouth Unknown Succinate ER /0000 ER 24HR every day Acetaminophen 00 Active Tablets 325mg 1 tab as Unknown /0000 needed q4 Metformin HCL Active Tablets 1000mg 1 by mouth Unknown /0000 twice a day Meclizine HCL Active Tablets 25mg 1 by mouth Unknown /0000 three times a day Fenofibrate Active Tablets 145mg 1 by mouth Unknown /0000 every day Fenofibrate Hx Capsules 134mg Unknown Micronized / - 07/19 Omeprazole Hx Capsules 20mg 1 po qd Unknown /0000 DR - 12/23 Meloxicam Hx Tablets 15mg 30tab 1 by mouth Unknown / s every day - after meals 07/19 Metoprolol Hx Tablets 25mg Unknown Tartrate / - 07/19 Amoxicillin 00 Hx Tablets 500mg 30tab 1 po tid for Unknown /0000 s 10 days - 01/31 Simvastatin 00/ Hx Tablets 20mg Unknown / - 12/23 Aspir-81 00 Hx Tablets 81mg Unknown /0000 DR - 12/23 Novolog Flexpen Hx Solution 100Unit/M 30Iu qd @ hs Unknown /0000 L - 07/19 Lantus Solostar 00 Hx Solution 100Unit/M 90Iu bid Unknown /0000 L - 07/19 Aspirin Adult 00 Hx Tablets 81mg Once Daily Unknown Low Strength /0000 DR - 07/19 Invokana 00 Hx Tablets 100mg 2 Times A Day Unknown /0000 For Diabetes - 07/19 [facility] D3 00 Hx Capsules 1000Unit 60cap Once Daily Unknown /0000 s - 12/23 Ergocalciferol 0000 Hx Capsules 09268Tset Every Week Unknown /0000 - 07/19 Fenofibrate 00 Hx Capsules 134mg Once Daily Unknown Micronized / - 12/23 Glipizide 00/00 Hx Tablets 10mg Daily For Unknown /0000 Diabetes - 07/19 Lantus Solostar 00 Hx Solution 100Unit/M Every Evening Unknown / Pen-Injec L - t 07/19 Lisinopril Hx Tablets 20mg Once Daily Unknown / - 12/23 Metformin HCL Hx Tablets 1000mg Daily Unknown / - 12/23 Metoprolol Hx Tablets 25mg 2 Times A Day Unknown Tartrate / - 12/23 Simvastatin Hx Tablets 20mg Once Daily Unknown / - 12/23 Tamsulosin HCL Hx Capsules 0.4mg Once Daily Unknown - 12/23 Celebrex Hx Capsules 100mg one tab twice Unknown /0000 daily for 30 - days, , as 12/23 needed for pain Clopidogrel Hx Tablets 75mg tab one by Unknown Bisulfate /0000 mouth every - in the 12/23 Tonena Solostar 00 Hx Solution 300Unit/M 140 units Unknown /0000 Pen-Injec L injection - t subcutaneous 12/23 every day Oxybutynin Hx Tablets 10mg 1 po qd Unknown Chloride ER /0000 ER 24HR - 12/23 Nitrostat Hx Tablets 0.4mg 1 tab sl Unknown /0000 Sub every 5 min - x3 chest pain 12/23 Epipen 2-Ruben Hx Solution 0.3mg/0.3 use as needed Unknown /0000 Auto-Inje ML severe - ct allergic 12/23 Vital Signs Date Vital Result Comment 02/15/2018 Weight 197.00 lb Height 70.5 inches 5'10.50" BMI (Body Mass Index) 27.9 kg/m2 BP Systolic 128 mmHg BP Diastolic 78 mmHg Heart Rate 60 /min O2 % BldC Oximetry 99 % Body Temperature 97.2 F Pain Level 0 12/24/2017 Weight 205.00 lb Height 70.5 inches 5'10.50" BMI (Body Mass Index) 29.0 kg/m2 BP Systolic 124 mmHg BP Diastolic 76 mmHg Heart Rate 74 /min O2 % BldC Oximetry 97 % Body Temperature 98.5 F Pain Level 0 07/20/2016 Weight 293.25 lb Height 70.5 inches 5'10.50" BMI (Body Mass Index) 41.5 kg/m2 BP Systolic 148 mmHg BP Diastolic 86 mmHg Heart Rate 82 /min O2 % BldC Oximetry 97 % Body Temperature 98.6 F [place] Score 10 Neck Circumference in inches 17.75 03/03/2013 Weight 307.00 lb Height 70.5 inches 5'10.50" BMI (Body Mass Index) 43.4 kg/m2 BP Systolic 142 mmHg BP Diastolic 80 mmHg Body Temperature 97.0 F 01/31/2013 Weight 306.00 lb Height 70.5 inches 5'10.50" BMI (Body Mass Index) 43.3 kg/m2 BP Systolic 150 mmHg BP Diastolic 90 mmHg Body Temperature 96.8 F 12/23/2012 Weight 300.00 lb Height 70.5 inches 5'10.50" BMI (Body Mass Index) 42.4 kg/m2 BP Systolic 160 mmHg BP Diastolic 100 mmHg Heart Rate 82 /min O2 % BldC Oximetry 95 % Body Temperature 97.4 F Results Test Date Test Result H/L Range Note Basic Metabolic Panel 01/17/2013 Glucose 142 mg/dL High 76-115 BUN 17 mg/dL 5-23 Creatinine 0.8 mg/dL 0.5-1.4 Glom Filtration Rate, Estimate >60 mL/min >60 If >60 mL/min >60 1 BUN/Creat 21.2 ratio Sodium 139 mmol/L 136-145 Potassium 4.3 mmol/L 3.5-5.1 Chloride 104 mmol/L 98-107 Carbon Dioxide 24 mEq/L 18-29 Anion Gap 15 mEq/L 8-16 Calcium 9.4 mg/dL 8.5-10.1 CBC 01/17/2013 White Blood Count 7.9 K/uL 3.4-10.5 Red Blood Count 5.36 M/uL 4.20-5.80 Hemoglobin 15.9 gm/dL 12.8-17.0 Hematocrit 45.8 % 38.0-48.0 Mean Cell Volume 85.4 fl 80.0-96.0 Mean Corpuscular HGB 29.7 pg 27.0-33.0 Mean Corpuscular HGB Conc 34.7 g/dL 31.7-36.0 Platelet Count 321 K/uL 150-400 Red Cell Distri Width %CV 13.3 % 11.6-15.8 Mean Platelet Volume 10.2 fL 6.6-10.6 Urine Screen 01/17/2013 Urine Color YELLOW Yellow Urine Clarity CLEAR Clear Urine Glucose - Dipstick NEGATIVE mg/dL Negative Urine Bilirubin - Dipstick NEGATIVE Negative Urine Ketone TRACE mg/dL High Negative Urine Specific [place] 1.020 1.010-1.030 Urine Blood NEGATIVE Negative Urine PH 7.5 6.5-7.5 Urine Protein - Dipstick TRACE mg/dL Negative Urine Urobilinogen - Dipstick 1.0 E.U./dL 0.2-1.0 Urine Nitrite - Dipstick NEGATIVE Negative Urine Leuk Esterase NEGATIVE Negative 1 Note: Persistent reduction for 3 months or more in an eGFR <60 mL/min/1.73 m2 defines CKD. Patients with eGFR values >/=60 mL/min/1.73 m2 may also have CKD if evidence of persistent proteinuria is present. The original MDRD equation for estimated GFR is not valid for patients less than 18 years of age. Additional information may be found at www.kdoqi.org. Procedures Date CPT Code Description Status 04/23/2018 37220 Tympanometry Completed 04/23/2018 51961 Audiometry, Comprehensive Completed 08/31/2016 31377 Sleep Stage 4 Or More Cpap Titra Completed 04/01/2013 73297 Sleep Stage 4 Or More Cpap Titra Completed 02/12/2013 47242 Sleep Staging 4Or More Para Completed 01/23/2013 69072 Esophagoscopy/Diagnostic Completed 12/24/2012 82419 Fiberoptic Laryngoscopy,Diag. Completed Encounters Type Date Location Provider CPT E/M Dx Office Visit 02/15/2018 7:15a Main Office Mirza Douglas M.D. 37297 R42 Office Visit 12/24/2017 9:30a Main Office Mirza Douglas M.D. 09718 G47.33 H55.89 Office Visit 07/20/2016 2:30p [place] [address] G47.33 J34.3 J34.2 R06.83 Office Visit 03/03/2013 9:15a [place] [address] 786.09 780.50 327.23 Office Visit 01/31/2013 2:30p [place] [address] 786.09 278.01 780.50 Office Visit 12/24/2012 12:30p Main Office Mirza Douglas M.D. 91485 787.20 784.1 786.09 Office Visit 12/23/2012 10:00a Main Office Mirza Douglas M.D. 32303 787.20 784.1 786.09 Plan of Care Future Appointment(s):05/03/2018 7:15 am - Mirza Douglas M.D. at Main Office
--- OUTSIDE RECORDS SUMMARY | 2018-05-14 19:31 | XMS REPORT ---
:1960 External Reference #:[id number] Author Organization [facility] Address [address] [place] [address] Phone [phone] Care Team Providers Name Role Phone Selina Chisholm MD Care Team Information Non Licensed Operator Unavailable Selina Chisholm MD Primary Care Physician Unavailable Payers Type Date Identification Numbers Payment Provider Subscriber Health Maintenance Policy Number: [place] [facility] Jerri Major SR Organization (HMO) [id number] PayID: [id number] [address] [place] [address] Problems Date Description Provider Status Onset: 12/24/2012 [...] 02/15 Active Patches 1mg/3Days 3unit one patch Msiael, 72HR s every 72 hour René Blue [...] s - 12/23 Ergocalciferol 0000 Hx Capsules [id number] Every Week Unknown /0000 - 07/19 Fenofibrate [...] 12/23 Vital Signs Date Vital Result Comment 05/03/2018 Weight 199.00 lb Height 70.5 inches 5'10.50" BMI (Body Mass Index) 28.1 kg/m2 BP Systolic 125 mmHg BP Diastolic 79 mmHg Heart Rate 84 /min O2 % BldC Oximetry 100 % Body Temperature 97.2 F Pain Level 0 02/15/2018 Weight 197.00 lb Height 70.5 inches [...] Oximetry 97 % Body Temperature 98.6 F [place] Score 10 Neck Circumference in inches 17.75 [...] Ketone TRACE mg/dL High Negative Urine Specific [place] 1.020 1.010-1.030 Urine Blood NEGATIVE Negative Urine [...] Procedures Date CPT Code Description Status 04/23/2018 28194 Tympanometry Completed 04/23/2018 58711 Audiometry, Comprehensive Completed 04/23/2018 84893 Basic Vestibular Eval Completed 04/23/2018 40427 Caloric Vestibular Test With Recording, Bilateral, Completed [place] 08/31/2016 13166 Sleep Stage 4 Or More Cpap Titra Completed 04/01/2013 35098 Sleep Stage 4 Or More Cpap Titra Completed 02/12/2013 71936 Sleep Staging 4Or More Para Completed 01/23/2013 40574 Esophagoscopy/Diagnostic Completed 12/24/2012 61428 Fiberoptic Laryngoscopy,Diag. Completed Encounters Type Date Location Provider CPT E/M Dx Office Visit 02/15/2018 7:15a Main Office Mirza Douglas M.D. 86087 R42 Office Visit 12/24/2017 9:30a Main Office Mirza Douglas M.D. 20898 G47.33 H55.89 Office Visit 07/20/2016 2:30p Main Office Kortney Eubanks, PRABHJOT 76322 G47.33 J34.3 J34.2 R06.83 Office Visit 03/03/2013 9:15a [place] [address] 786.09 780.50 327.23 Office Visit 01/31/2013 2:30p [place] [address] 786.09 278.01 780.50 Office Visit 12/24/2012 12:30p Main Office Mirza Douglas M.D. 86706 787.20 784.1 786.09 Office Visit 12/23/2012 10:00a Main Office Mirza Douglas M.D. 99494 787.20 784.1 786.09 Plan of Care No Information Available
[2018-05-14 19:38] VITALS: BP 111/68
--- NOTE | 2018-05-14 19:56 | UC ---
General HPI - HPI Summary HPI Summary: Pt presents to UC reporting 6 weeks of rectal itching. Pt states worses when gets hot and sweaty - working outside. Pt denies hemorrhoid, blood/black stool, abd pain. No n/v/d. No fever, chills. Pt states has put corn starch on area without improvement. Pt spoke with PCP office yesterday - recommended take Benadryl. Pt has not tried yet. No other with same sx Pt also with discomfort "at the top of my crack." Pt states sore, increases with sitting. Pt has not taken any analgesia to treat. No fever, chills. No direct trauma. No fever, chills, rash. Pt has had x 3 months. PCP recommended a donut - little improvement Pt's medications reviewed this visit - History of Current Complaint Chief Complaint: UCGeneralIllness Stated Complaint: PERSONAL Time Seen by Provider: 05/14/18 19:47 Hx Obtained From: Patient, Family/Residential Insurance Inspector Onset/Duration: Gradual Onset Timing: Constant Onset Severity: Mild Current Severity: None Pain Intensity: 0 - Allergy/Home Medications Allergies/Adverse Reactions: Allergies Allergy/AdvReac Type Severity Reaction Status Date / Time bee venom protein (honey bee) Allergy Unknown Swelling Verified 05/14/18 19:38 pseudoephedrine Allergy Unknown Hives [facility]/14[facility]18 19:38 [facility] Vinegar AdvReac Vomiting Uncoded 05/14/18 19:38 Home Medications: Home Medications Calcium Carbonate/Vitamin D3 [Calcium 600 + Vit D Tablet] 1 each PO DAILY [History Confirmed 05/14/18] PMH/Surg Hx/FS Hx/Imm Hx Previously Healthy: Yes Endocrine History: Diabetes Cardiovascular History: Hypertension - Surgical History Surgical History: Yes Surgery Procedure, Year, and Place: Left shoulder repair 2004 ([place]), Hernia repair 1999, cardiac angiogram early to mid ; gastric bypass . Cardiac Stent 2014. RIGHT SHOULDER SX - Family History Known Family History: Positive: Cardiac Disease, Hypertension, Diabetes, Respiratory Disease - Asthmna. Negative: Other - GOUT - Social History Occupation: Employed Full-time Lives: With Family Alcohol Use: None Substance Use Type: None Smoking Status (MU): Former Smoker Type: Cigarettes Amount Used/How Often: 3 PPD Length of Time of Smoking/Using Tobacco: 30 Years Have You Smoked in the Last Year: No When Did the Patient Quit Smoking/Using Tobacco: 1976 - Immunization History Most Recent Influenza Vaccination: no Most Recent Tetanus Shot: 2011 Review of Systems Constitutional: Negative Skin: Other - rectal itching Musculoskeletal: Other: - pain at prox coccyx All Other Systems Reviewed And Are Negative: Yes Physical Exam - Summary Physical Exam Summary: Normal exam - complete Vital Signs Reviewed: Yes A+Ox3, no distress Eyes: Conjunctiva Clear, ROSA. EOM intact and full ENT: Hearing grossly normal TM x 2 clear, mmoist, uvula midline, no exudate, no erythema Neck: Positive: Supple Respiratory: Positive: No respiratory distress, No accessory muscle use + CTA throughout no w/r Cardiovascular: RRR nl s1, s2 no m/r CBT <2 sec abd soft + BS nt/nd no guarding, no distension rectal exam with RN chaparone: Pt without external lesions. pt with moist appearing tissue at anus no edema no tenderness no palpable fissure no bleeding no hemorrhoid no mass no discomfort with exam Musculoskeletal Exam: VALENZUELA x 4 without difficulty Strength Intact, ROM Intact no pain spinous process c/t/l pt with mild midline tenderness superior margin coccyx at superior margin of gluteal cleft. No erythema, warmth. no crepitus no fluctuance no warmth Neurological: Positive: Alert, + sensation throughout Psychological: Positive: Normal Response To Family Skin: Positive: no rash, no ecchymosis - see abd Triage Information Reviewed: Yes Vital Signs: Initial Vital Signs Temp 98.1 F 05/14/18 19:34 Pulse 60 05/14/18 19:34 Resp 20 05/14/18 19:34 BP 111/68 05/14/18 19:34 Pulse Ox 100 05/14/18 19:34 Diagnostics - Radiology No standard instances Xray Interpretation: No Acute Changes Radiology Interpretation Completed By: ED Physician Course/Dx - Course Course Of Treatment: Pt with rectal itching. On exam, rectal area appears moist with mild erythema. Test for pinworm taken. Will treat with topical antifungal. recommend gentle soap, warm water. cool for itchng. avoid sweating - thorough drying okay for benadryl - precaution. For coccyx discomfort - unremarkable xray. consider pilonidal cyst as etilogy for disomfort -no current concern for infetion. recommend f/u with PCP -? imaging wtih ultrasound. recommend APAP - pt s/p gastric bypass. Pt comfortable and iin agreement with plan - Differential Dx - Multi-Symptom Provider Diagnoses: anal itching. coccyx discomfort Discharge - Sign-Out/Discharge Documenting (check all that apply): Patient Departure - Discharge Plan Condition: Stable Disposition: HOME Prescriptions: Clotrimazole 1% CREAM* [Clotrimazole 1%*] 1 applic TOPICAL BID #1 tube Patient Education Materials: Pilonidal Cyst (ED), Skin Yeast Infection (ED) Referrals: No Primary Care Phys,NOPCP [Primary Care Provider] - Additional Instructions: - The doctor that evaluated use is concerned that the pain in the low back may be related to something called a pilonidal cyst. There is no concern at this time that the cyst is infected and needs to be drained. It is recommended that you follow up with primary care doctor for further evaluation of this. Your primary care may elect to order ultrasound or CT imaging to better evaluate. In the meantime, continue to use a doughnut for sitting. Okay to take Tylenol every 6 hours as needed for pain. Okay to apply heat to this area. It is recommended you do not let warm water run down into your rectal area as this will make itching worse. - For your rectal area, the provider that evaluated you is concerned that your symptoms may be raised to a yeast infection. For this, it's recommended that you apply the cream as prescribed twice a day for total of 10 days. Avoid getting overheated. Apply cool soaks to the rectal area to help with itching. Use a mild soap to clean the area thoroughly with mild soap and warm water. Your doctor also tested you for pinworms. This test takes approximately one week to come back. If you need additional treatment urocele phone call from care steam box operator Contact your doctor to schedule a follow-up visit early next week - Billing Disposition and Condition Condition: STABLE Disposition: Home
--- NOTE | 2018-05-15 07:43 | RAD ---
HISTORY: tender prox coccyx COMPARISONS: None VIEWS: 3, frontal, outlet, and lateral views of the sacrum and coccyx. FINDINGS: BONE DENSITY: Normal. BONES: There is no displaced fracture. JOINTS: There is no arthropathy. ALIGNMENT: There is no dislocation. SOFT TISSUES: Unremarkable. OTHER FINDINGS: None. IMPRESSION: NO ACUTE OSSEOUS INJURY OF THE SACRUM AND COCCYX. PLAIN FILMS ARE RELATIVELY INSENSITIVE TO NONDISPLACED FRACTURES OF THE SACRUM AND COCCYX. IF THERE IS PERSISTENT CLINICAL CONCERN FOR SACROCOCCYGEAL OSSEOUS PATHOLOGY, BONE SCANNING MAY BE MORE SENSITIVE R0
--- NOTE | 2018-05-16 07:05 | UC ---
- Progress Note Progress Note: no pinworms no change christophe 05/16/18 Discharge - Sign-Out/Discharge Documenting (check all that apply): Post-Discharge Follow Up - Discharge Plan Condition: Stable Disposition: HOME Prescriptions: Clotrimazole 1% CREAM* [Clotrimazole 1%*] 1 applic TOPICAL BID #1 tube Patient Education Materials: Pilonidal Cyst (ED), Skin Yeast Infection (ED) Referrals: No Primary Care Phys,NOPCP [Primary Care Provider] - Additional Instructions: - The doctor that evaluated use is concerned that the pain in the low back may be related to something called a pilonidal cyst. There is no concern at this time that the cyst is infected and needs to be drained. It is recommended that you follow up with primary care doctor for further evaluation of this. Your primary care may elect to order ultrasound or CT imaging to better evaluate. In the meantime, continue to use a doughnut for sitting. Okay to take Tylenol every 6 hours as needed for pain. Okay to apply heat to this area. It is recommended you do not let warm water run down into your rectal area as this will make itching worse. - For your rectal area, the provider that evaluated you is concerned that your symptoms may be raised to a yeast infection. For this, it's recommended that you apply the cream as prescribed twice a day for total of 10 days. Avoid getting overheated. Apply cool soaks to the rectal area to help with itching. Use a mild soap to clean the area thoroughly with mild soap and warm water. Your doctor also tested you for pinworms. This test takes approximately one week to come back. If you need additional treatment urocele phone call from care steam conditioner operator Contact your doctor to schedule a follow-up visit early next week - Billing Disposition and Condition Condition: STABLE Disposition: Home
== END 2018-05-14 20:52 | disposition home or self-care (01) ==
LOC: UCCORT 19:17
DX: L29.0 Pruritus ani (principal); M53.3 Sacrococcygeal disorders, not elsewhere classified; Z88.8 Allergy status to other drugs, medicaments and biological substances; E11.9 Type 2 diabetes mellitus without complications; I10 Essential (primary) hypertension; Z87.891 Personal history of nicotine dependence
CPT/HCPCS: 72220; 87172; 99212; G0463

== ENCOUNTER 2018-05-26 13:11 | Emergency (ER) | payer OTHER ==
[2018-05-26 13:30] VITALS: BP 112/64
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
[2018-05-26] MEDS ORDERED: Ibuprofen TAB* 600 MG PO ONE (13:57)
--- NOTE | 2018-05-26 14:54 | RAD ---
Indication: Left elbow pain. 4 views of left elbow demonstrates no joint effusion. There is no fracture or dislocation. No other bone or joint abnormality is identified. IMPRESSION: NO FRACTURE OF THE LEFT ELBOW IS NOTED. NO JOINT EFFUSION IS NOTED.
== END 2018-05-26 14:27 | disposition home or self-care (01) ==
LOC: UCCORT 13:11
DX: S50.02XA Contusion of left elbow, initial encounter (principal); W18.09XA Striking against other object with subsequent fall, initial encounter; Y93.9 Activity, unspecified; Y92.9 Unspecified place or not applicable; Z88.8 Allergy status to other drugs, medicaments and biological substances; Z87.891 Personal history of nicotine dependence
CPT/HCPCS: 99213; A9270-GY; G0463

== ENCOUNTER 2018-07-11 07:33 | Emergency (ER) | payer OTHER ==
[2018-07-11 07:53] VITALS: BP 106/63
--- NOTE | 2018-07-11 08:39 | UC ---
Knee Pain HPI - HPI Summary HPI Summary: 57 year old male with knee pain. c/o R knee pain that started this morning. Denies any injury. Pain /10 today. No previous trauma or surgery. Knee not giving out. Patient has history of cardiac disease with stents placed and was on Plavix until earlier this year. Pain was unbearable to walk on starting approximately 1 AM this morning patient denies any change in activity yesterday or any trauma. Patient states he cannot touch the knee at all. Diffuse right knee pain. Has no history of previous trauma or any gout. Has had no previous deep vein thromboses. Patient states with previous shoulder pain he has had Toradol injections which she has tolerated well. He is asking for pain relief and medication at this time. He is aware of risks and side effects of any medication given in this facility. [ End ] - History of Current Complaint Chief Complaint: UCLowerExtremity Stated Complaint: RIGHT KNEE Time Seen by Provider: 07/11/18 08:36 Hx Obtained From: Patient Onset/Duration: Sudden Onset, Still Present Severity Initially: Moderate Severity Currently: Moderate Pain Intensity: 7 Aggravating Factor(s): Movement Alleviating Factor(s): Rest Able to Bear Weight: Yes - Allergies/Home Medications Allergies/Adverse Reactions: Allergies Allergy/AdvReac Type Severity Reaction Status Date / Time bee venom protein (honey bee) Allergy Unknown Swelling Verified 07/11/18 07:45 pseudoephedrine Allergy Unknown Hives Verified 07/11/18 07:45 [From [facility]] Vinegar AdvReac Vomiting Uncoded 07/11/18 07:45 Home Medications: Home Medications Cholecalciferol (Vitamin D3) [Vitamin D3] 2,000 unit PO DAILY 07/11/18 [History Confirmed 07/11/18] Fenofibrate(NF) 130 mg PO DAILY 07/11/18 [History Confirmed 07/11/18] Multivitamin [Multivitamins] 1 each PO DAILY 07/11/18 [History Confirmed ] PMH/Surg Hx/FS Hx/Imm Hx Previously Healthy: Yes Endocrine History: Dyslipidemia Cardiovascular History: Cardiac Disease, Hypertension - Surgical History Surgical History: Yes Surgery Procedure, Year, and Place: Left shoulder repair 2004 ([place]), Hernia repair 1999, cardiac angiogram early to mid ; gastric bypass . Cardiac Stent 2015. RIGHT SHOULDER SX. left shoulder - Family History Known Family History: Positive: Cardiac Disease, Hypertension, Diabetes, Respiratory Disease - Asthmna. Negative: Other - GOUT - Social History Occupation: Unemployed Lives: With Family Alcohol Use: None Substance Use Type: None Smoking Status (MU): Former Smoker Type: Cigarettes Amount Used/How Often: 3 PPD Length of Time of Smoking/Using Tobacco: 30 Years Have You Smoked in the Last Year: No When Did the Patient Quit Smoking/Using Tobacco: 1976 - Immunization History Most Recent Influenza Vaccination: no Most Recent Tetanus Shot: 2011 Review of Systems Musculoskeletal: Arthralgia, Decreased ROM Is Patient Immunocompromised?: No All Other Systems Reviewed And Are Negative: Yes Physical Exam Triage Information Reviewed: Yes Appearance: Well-Appearing, Well-Nourished, Pain Distress - moderate Vital Signs: Initial Vital Signs Temp 97.9 F 07/11/18 07:49 Pulse 64 07/11/18 07:49 Resp 18 07/11/18 07:49 BP 106/63 07/11/18 07:49 Pulse Ox 100 07/11/18 07:49 Vital Signs Reviewed: Yes Eyes: Positive: Conjunctiva Clear ENT: Positive: Hearing grossly normal Respiratory: Positive: No respiratory distress Musculoskeletal: Positive: Strength Intact, ROM Limited @, Edema @, Other: - Diffuse pain to palpation that was significant enough to prevent full knee examination. Tenderness in the popliteal fossa as well as mild tenderness in the calf. Pain worsened on anterior patella but overall it is diffuse. Mild swelling of right knee. No streaking or ecchymosis. Sensation intact. Psychological Exam: Normal Skin Exam: Normal Diagnostics - Laboratory Diagnostic Studies Completed/Ordered: xray neg. sono neg Knee Pain Course/Dx - Differential Dx/Diagnosis Differential Diagnosis/HQI/PQRI: Bursitis, Internal Derangement Of Knee, Sprain , Strain, Tendonitis Provider Diagnoses: Right knee pain Discharge - Discharge Plan Condition: Good Disposition: HOME Referrals: Glenis Escobedo MD [Primary Care Provider] - 4 Days Raoul Cooper MD [Medical Doctor] - 1 Day (Orthopedic referral ) - Billing Disposition and Condition Condition: GOOD Disposition: Home
[2018-07-11] MEDS ORDERED: Ketorolac INJ* 30 MG/ML 1 ML VIAL IM ONE (08:52)
--- NOTE | 2018-07-11 09:14 | RAD ---
Indication: Right knee pain. 2 views of the right knee are reviewed. There is no fracture or dislocation. There is a calcified lesion in the posterior metaphysis of the distal femur with narrow zone of transition likely representing a benign chondroid lesion such as an enchondroma. IMPRESSION: No fracture of the right knee is noted. Well demarcated lesion in the posterior metaphysis of the femur with chondroid matrix suspicious for enchondroma.
--- NOTE | 2018-07-11 10:04 | RAD ---
INDICATION: Right knee pain and swelling. COMPARISON: There are no relevant prior studies available for comparison. TECHNIQUE: Multiple real-time, color flow and Doppler tracings of the right lower extremity were obtained. FINDINGS: The common femoral, femoral, profunda femoral and popliteal veins all demonstrate normal compressibility, augmentation with compression and phasic response with respiration. The posterior tibial and peroneal veins demonstrate normal compressibility and augmentation with compression. IMPRESSION: NO EVIDENCE FOR DEEP VENOUS THROMBOSIS.
--- NOTE | 2018-07-11 21:22 | UC ---
- Progress Note Progress Note: Patient Name: SCOTTY CAN Medical Record#: [id number] Ordering Physician: Javan Melissa DO Acct.#: [id number] : 1960 Age: 57 Sex: M Location: [facility] Exam Date: 07/11/18847 ADM Status: REG ER Order Information: KNEE RIGHT 1-2 VWS Accession Number: [id number] CPT: 48910 Indication: Right knee pain. 2 views of the right knee are reviewed. There is no fracture or dislocation. There is a calcified lesion in the posterior metaphysis of the distal femur with narrow zone of transition likely representing a benign chondroid lesion such as an enchondroma. IMPRESSION: No fracture of the right knee is noted. Well demarcated lesion in the posterior metaphysis of the femur with chondroid matrix suspicious for enchondroma. <Electronically signed by Holley Lott MD in OV> 07/11/18910 Dictated By: Holley Lott MD Dictated Date/Time: 07/11/18910 Transcribed Date/Time: 07/11/18905 Copy to: CC:Javan Melissa DO; Glenis Escobedo MD Imaging - [facility] [address] [place] [address] ph ([phone]) ph ([phone]) ph ([phone]) This report is only to be considered final once signed by the Provider(s) as displayed in the "<Electronically Signed by >" field (s). Absence of a signature indicates the report is in a draft status and still needs to be finalized. In the event this document was created by someone other than the signing Provider, the individual initiating the document will be listed in the "Entered by:" or "Dictated by:" bobby. 1 of 1 Patient Name: SCOTTY CAN Medical Record#: [id number] Ordering Physician: Javan Melissa DO Acct.#: [id number] : 1960 Age: 57 Sex: M Location: [facility] Exam Date: 07/11/18 0850 ADM Status: REG ER Order Information: VL LOWER EXT VEINS RIGHT Accession Number: [id number] CPT: 82561 INDICATION: Right knee pain and swelling. COMPARISON: There are no relevant prior studies available for comparison. TECHNIQUE: Multiple real-time, color flow and Doppler tracings of the right lower extremity were obtained. FINDINGS: The common femoral, femoral, profunda femoral and popliteal veins all demonstrate normal compressibility, augmentation with compression and phasic response with respiration. The posterior tibial and peroneal veins demonstrate normal compressibility and augmentation with compression. IMPRESSION: NO EVIDENCE FOR DEEP VENOUS THROMBOSIS. <Electronically signed by Boubacar Linn MD in OV> 07/11/18 1001 Dictated By: Boubacar Linn MD Dictated Date/Time: 07/11/18 1001 Transcribed Date/Time: 07/11/18 0959 Copy to: CC:Javan Melissa DO; Glenis Escobedo MD Imaging - [facility] [address] [address] ph ([phone]) ph ([phone]) ph ([phone]) This report is only to be considered final once signed by the Provider(s) as displayed in the "<Electronically Signed by >" field (s). Absence of a signature indicates the report is in a draft status and still needs to be finalized. In the event this document was created by someone other than the signing Provider, the individual initiating the document will be listed in the "Entered by:" or "Dictated by:" bobby. 1 of 1 Discharge - Sign-Out/Discharge Documenting (check all that apply): Post-Discharge Follow Up All imaging exams completed and their final reports reviewed: Yes - Discharge Plan Condition: Good Disposition: HOME Patient Education Materials: Knee Pain (ED) Referrals: Raoul Cooper MD [Medical Doctor] - 1 Day (Orthopedic referral ) Glenis Escobedo MD [Primary Care Provider] - 4 Days Additional Instructions: Your xray and sonogram reveal no acute concerns. - Billing Disposition and Condition Condition: GOOD Disposition: Home
== END 2018-07-11 10:22 | disposition home or self-care (01) ==
LOC: UCCORT 07:33
DX: M25.561 Pain in right knee (principal); M79.89 Other specified soft tissue disorders; I11.9 Hypertensive heart disease without heart failure; E78.5 Hyperlipidemia, unspecified; M89.9 Disorder of bone, unspecified; Z98.84 Bariatric surgery status; Z87.891 Personal history of nicotine dependence; Z91.030 Bee allergy status; Z98.61 Coronary angioplasty status; Z88.8 Allergy status to other drugs, medicaments and biological substances
CPT/HCPCS: 96372; 99212; G0463; J1885

== ENCOUNTER 2018-08-07 14:12 | Emergency (ER) | payer OTHER ==
--- OUTSIDE RECORDS SUMMARY | 2018-08-07 14:40 | XMS REPORT ---
:1960 External Reference #:[id number] Author Organization [facility] Address [address] [place] [address] [place] [address] Phone [phone] Care Team Providers Name Role Phone Glenis Escobedo M.D. 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 ETOH Use Denies alcohol use Recreational Drug Use Denies Drug Use Smoking Patient is a former smoker Daily Caffeine Consumes on average 2 pots of regular coffee per day Allergies, Adverse Reactions, Alerts Date Description Reaction Status Severity Comments 07/12/2018 Bee Sting active 07/12/2018 Cider Vinegar active 01/25/2011 No Known Drug Allergy inactive Medications Medication Date Status Form Strength Qnty SIG Indications Ordering Provider Sulfamethoxazol 07/12/ Active Tablets 800-160mg M70.41 Raoul M e/Trimethoprim 2017 VINOD Cooper MD Bactrim DS 07/12/ Active Tablets 800-160mg 20tab 1 by mouth M70.41 Raoul Rangel 2018 s twice a day Allison x 10 days Naproxen 07/12/ Active Tablets 500mg 60tab 1 by mouth M70.41 Raoul M 2018 s twice a day brain Cooper food Oxybutynin / Active Tablets ER 5mg 1 po qday [facility] Chloride ER 0000 24HR Glenis klein M.D. Lisinopril / Active Tablets 20mg 1 po qday Le, 0000 Carisa Escamilla [facility] D3 / Active Capsules 2000Unit 1 by mouth Villapian 0000 every day Glenis klein M.D. Epipen 2-Ruben / Active Solution 0.3mg/0.3M Villapian 0000 Auto-Injec L radha klein M.D. Daily Multiple / Active Tablets 1 by mouth Unknown Vitamins/Minera 0000 every day ls Vitamin B-12 ER / Active Tablets ER 1000mcg 1 tablet Unknown 0000 sublingual every day Aspirin 81 Low / Active Chewtabs 81mg 1 by mouth Unknown Dose 0000 every day Nitroglycerin / Active Tablets 0.4mg 1 sl q5mins Unknown 0000 Sub x3 as needed for chest pain Calcium 600 + D / Active Tablets 600-200mg- 1 by mouth Unknown 0000 Unit twice a day Fenofibrate / Active Capsules 134mg 1 po qday Unknown 0000 Metformin HCL / Hx Tablets 1000mg 1 po bid Unknown 0000 - 2017 Excedrin / Hx Tablets 500-65mg prn Unknown Tension 0000 - Headache 2017 Atenolol / Hx Tablets 50mg 30tab 1 po qd Unknown 0000 - s 2017 Glipizide / Hx Tablets 5mg 60tab 1 po bid Unknown 0000 - s 2017 Fenofibrate / Hx Capsules 134mg Villapian Micronized 0000 - o, 2017 MKishanDKishan [facility] / Hx Cream 1% Rendano, Clotrimazole Greg Edwards MD 2017 Metoprolol / Hx Tablets ER 50mg Villapian Succinate ER 0000 - 24HR o, 2017 MKishanD. Ketoconazole / Hx Shampoo 2% Villapian 0000 - o, 2017 M.DKishan Loperamide HCL / Hx Capsules 2mg Villapian 0000 - o, Glenis, 2017 MKishanDKishan Vital Signs Date Vital Result Comment 07/17/2018 Height 67 inches 5'7" Weight 196.00 lb BP Systolic Sitting 124 mmHg BP Diastolic Sitting 74 mmHg Respiratory Rate 16 /min Pain Level 2 BMI (Body Mass Index) 30.7 kg/m2 07/12/2018 Height 67 inches 5'7" Weight 196.00 lb BP Systolic Sitting 118 mmHg BP Diastolic Sitting 68 mmHg Respiratory Rate 17 /min Pain Level 4 BMI (Body Mass Index) 30.7 kg/m2 Results Description No Information Procedures Date CPT Code Description Status 01/25/2011 23702 Rad Shoulder Comp, Min. 2 Views Completed Encounters Type Date Location Provider CPT E/M Dx Office Visit 07/17/2018 [facility] [place] [address] M70.41 8:30a [facility] AT [place] Office Visit 02/01/2011 [facility]ier[facility] M.D. 40230 719.41 10:15a [facility] 726.10 Office Visit 01/25/2011 9:45a [facility] M.D. 15898 719.41 [facility] Plan of Care Future Appointment(s):08/01/2018 8:30 am - Raoul Cooper MD at [facility] AT Epifsaef10/26/2018 - Raoul Cooper, MDM70.41 Prepatellar bursitis, right kneeFollow up:Follow up: 2 weeks
--- OUTSIDE RECORDS SUMMARY | 2018-08-07 14:40 | XMS REPORT ---
:1960 External Reference #:[id number] Author Organization [facility] Address [address] [facility] [place] [address] [place] [address] Phone [phone] Care Team Providers Name Role Phone Glenis Escobedo M.D. Primary Care Physician Unavailable Payers Type Date Identification Numbers Payment Provider Subscriber Commercial Policy Number: [id number] Sanjeev Major PayID: [id number] [address] [place] [phone] Problems Description No Information Family History Date [...] 800-160mg 20tab 1 by mouth M70.41 Raoul M 2018 s twice a day Allison x [...] Shampoo 2% Villapian 0000 - o, 2017 MKishanDKishan Loperamide HCL / Hx Capsules 2mg Villapian 0000 - o, Glenis, 2017 MKishanDKishan Vital Signs Date Vital Result Comment 07/12/2018 Height 67 inches 5'7" Weight 196.00 lb BP Systolic Sitting 118 mmHg BP Diastolic Sitting 68 mmHg Respiratory Rate 17 /min Pain Level 4 BMI (Body Mass Index) 30.7 kg/m2 Results Description No Information Procedures Date CPT Code Description Status 01/25/2011 95923 Rad Shoulder Comp, Min. 2 Views Completed Encounters Type Date Location Provider CPT E/M Dx Office Visit 02/01/2011 [facility] M.D. 93483 719.41 10:15a [facility] 726.10 Office Visit 01/25/2011 9:45a [facility] Reji Fierro M.D. 34258 719.41 [facility] Plan of Care Future Appointment(s):07/17/2018 8:30 am - Raoul Cooper MD at [facility] AT Sfhsqxjx22/21/2018 - Raoul Cooper, MDM70.41 Prepatellar bursitis, right kneeNew Medication:Sulfamethoxazole/Trimethoprim DS 800-160 mgBactrim DS 800-160 mgNaproxen 500 mgFollow up:Follow up: next week
[2018-08-07 15:31] VITALS: BP 108/78
--- NOTE | 2018-08-07 16:49 | RAD ---
Indication: Headaches and dizziness. CT of the brain performed without IV contrast. Ventricular structures are midline. No midline shift is noted. Extra-axial spaces are unremarkable. There is no intracranial mass or hemorrhage. No other high or low density lesions are identified. Mastoid air cells and paranasal sinuses are otherwise unremarkable. IMPRESSION: No intracranial mass or hemorrhage is noted.
--- NOTE | 2018-08-07 17:29 | RAD ---
Indication: Sacrum and coccyx pain 2 views of the sacrum and coccyx demonstrates no fracture. Intervertebral foramen appear patent. Sacroiliac joints are unremarkable. IMPRESSION: No fracture of the sacrum or coccyx is noted.
--- NOTE | 2018-08-07 17:30 | RAD ---
Indication: Neck pain. 5 views of the cervical spine demonstrate vertebral bodies to be normal in height. Disc spaces all well-preserved. There is no fracture or dislocation noted. Degenerative disc disease at C5-C6 and C6-C7 is noted. IMPRESSION: No fracture of the cervical spine is noted.
--- NOTE | 2018-08-07 17:53 | UC ---
Dizzy HPI HPI Summary: The patient is a 57-year-old male that presents here with multiple complaints. He states for the past 2-3 months he has had an occipital headache that waxes and wanes. He is also had some chronic vertiginous symptoms that worsen with change in position or turning his head suddenly. States that he has chronic nasal congestion and postnasal drip. He has also been complaining of a 4-5 month history of tailbone pain. He denies any injuries. He has no chest pain or shortness of breath. He denies any palpitations. - History Of Current Complaint Chief Complaint: UCGeneralIllness Stated Complaint: LIGHT HEADED,DIZZY,HEADACHE Time Seen by Provider: 08/07/18 16:05 Hx Obtained From: Patient Onset/Duration: Gradual Onset, Lasting Weeks Timing: Minutes Severity Initially: Moderate Severity Currently: Mild Pain Intensity: 7 - tailbone Pain Scale Used: 0-10 Numeric Character: Room Spinning, Dizzy Aggravating Factor(s): Position Change Alleviating Factor(s): Nothing Associated Signs And Symptoms: Positive: Unsteady Gait. Negative: Nausea, Vomiting, Diaphoresis, Tinnitus, Chest Pain, SOB, Palpitations, Visual Changes, Decreased Oral Intake, Change In Medication, Change In Diet, OTC Medications - Allergies/Home Medications Allergies/Adverse Reactions: Allergies Allergy/AdvReac Type Severity Reaction Status Date / Time bee venom protein (honey bee) Allergy Unknown Swelling Verified 07/11/18 07:45 pseudoephedrine Allergy Unknown Hives Verified 07/11/18 07:45 [From [facility]] Vinegar AdvReac Vomiting Uncoded 07/11/18 07:45 Home Medications: Home Medications Lisinopril TAB* [Prinivil TAB*] 20 mg PO DAILY 08/07/18 [History Confirmed 08/07] PMH/Surg Hx/FS Hx/Imm Hx Endocrine History: Diabetes, Dyslipidemia Cardiovascular History: Hypertension - Surgical History Surgical History: Yes Surgery Procedure, Year, and Place: Left shoulder repair 2004 ([place]), Hernia repair 1999, cardiac angiogram early to mid ; gastric bypass . Cardiac Stent 2014. RIGHT SHOULDER SX. left shoulder - Family History Known Family History: Positive: Cardiac Disease, Hypertension, Diabetes, Respiratory Disease - Asthmna. Negative: Other - GOUT - Social History Alcohol Use: None Substance Use Type: None Smoking Status (MU): Former Smoker Type: Cigarettes Amount Used/How Often: 3 PPD Length of Time of Smoking/Using Tobacco: 30 Years Have You Smoked in the Last Year: No When Did the Patient Quit Smoking/Using Tobacco: 1976 - Immunization History Most Recent Influenza Vaccination: no Most Recent Tetanus Shot: 2011 Review of Systems Constitutional: Negative Skin: Negative Eyes: Negative ENT: Nasal Discharge, Sinus Congestion, Sinus Pain/Tenderness Respiratory: Negative Cardiovascular: Negative Gastrointestinal: Negative Genitourinary: Negative Motor: Negative Neurovascular: Negative Musculoskeletal: Negative Neurological: Headache Psychological: Negative All Other Systems Reviewed And Are Negative: Yes Physical Exam Triage Information Reviewed: Yes Appearance: Well-Appearing, No Pain Distress, Well-Nourished Vital Signs: Initial Vital Signs Temp 98.4 F 08/07/18 15:22 Pulse 64 08/07/18 15:22 Resp 24 08/07/18 15:22 BP 108/78 08/07/18 15:22 Pulse Ox 99 08/07/18 15:22 Vital Signs Reviewed: Yes Eyes: Positive: Conjunctiva Clear ENT: Positive: Hearing grossly normal, Nasal congestion, Nasal drainage. Negative: Tonsillar swelling, Tonsillar exudate, Dental tenderness, Sinus tenderness, Uvula midline Neck: Positive: Supple, Nontender, No Lymphadenopathy Respiratory: Positive: Lungs clear, Normal breath sounds, No respiratory distress Cardiovascular: Positive: RRR, No Murmur Musculoskeletal: Positive: Strength Intact, ROM Intact, No Edema Neurological: Positive: Alert, Muscle Tone Normal, Other: - cn2-12 intact, sensory intact, hyper reflexsive (chonic per pt) , normal gait Psychological Exam: Normal Skin Exam: Normal Diagnostics - Radiology No standard instances Xray Interpretation: No Acute Changes - CT brain NAD...bilat max sinusitis (per me) CS c 6-7 ddd coccyz and sacrum neg Radiology Interpretation Completed By: Radiologist Dizzy Course/Dx - Differential Dx/Diagnosis Provider Diagnoses: sinusitis. vertigo. headache due to sinusitis. DDD. chronic tailbone pain of uncertain cause Discharge - Sign-Out/Discharge Documenting (check all that apply): Patient Departure All imaging exams completed and their final reports reviewed: Yes - Discharge Plan Condition: Stable Disposition: HOME Prescriptions: Amoxicillin PO (*) [Amoxicillin 875 MG (*)] 875 mg PO BID #14 tab Fluticasone NASAL SPRAY 50MCG* [Flonase NASAL SPRAY 50MCG*] 2 spray BOTH NARES BID #1 btl Meclizine TAB* [Antivert TAB*] 12.5 mg PO QID PRN #20 tab PRN Reason: Dizziness Patient Education Materials: Sinusitis (ED), Vertigo (ED), Degenerative Disc Disease (ED) Referrals: Glenis Escobedo MD [Primary Care Provider] - 1 Week - Billing Disposition and Condition Condition: STABLE Disposition: Home
== END 2018-08-07 18:04 | disposition home or self-care (01) ==
LOC: UCCORT 14:12
DX: J32.9 Chronic sinusitis, unspecified (principal); R42 Dizziness and giddiness; M51.36 Other intervertebral disc degeneration, lumbar region; M53.3 Sacrococcygeal disorders, not elsewhere classified; E78.5 Hyperlipidemia, unspecified; I10 Essential (primary) hypertension; E11.9 Type 2 diabetes mellitus without complications; Z98.84 Bariatric surgery status; Z95.5 Presence of coronary angioplasty implant and graft; Z87.891 Personal history of nicotine dependence; Z88.8 Allergy status to other drugs, medicaments and biological substances; Z91.030 Bee allergy status
CPT/HCPCS: 70450; 72050; 72220; 99212; G0463

== ENCOUNTER 2018-09-14 08:38 | Emergency (ER) | payer OTHER ==
[2018-09-14 08:55] VITALS: BP 112/87
--- NOTE | 2018-09-14 09:57 | UC ---
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 mild infection , no procedure, no medications. Has hemorrhoid pillow. no fevers, chills. stools soft, + pain with stooling, no bleeding with defication. unable to drive due to pain. - History of Current Complaint Chief Complaint: UCSkin Stated Complaint: SKIN CONCERN Time Seen by Provider: 09/14/18 09:23 Hx Obtained From: Patient Onset/Duration: Gradual Onset, Lasting Hours, Lasting Weeks - since 01/2018 Severity Initially: Moderate Severity Currently: Moderate Pain Intensity: 7 - Allergies/Home Medications Allergies/Adverse Reactions: Allergies Allergy/AdvReac Type Severity Reaction Status Date / Time bee venom protein (honey bee) Allergy Unknown Swelling Verified 09/14/18 08:51 pseudoephedrine Allergy Unknown Hives Verified 09/14/18 08:51 [From Sudafed] Vinegar AdvReac Vomiting Uncoded 09/14/18 08:51 PMH/Surg Hx/FS Hx/Imm Hx Previously Healthy: No - Surgical History Surgical History: Yes Surgery Procedure, Year, and Place: Left shoulder repair 2004 ([place]), Hernia repair 1999, cardiac angiogram early to mid ; gastric bypass . Cardiac Stent 2014. RIGHT SHOULDER SX. left shoulder - Family History Known Family History: Positive: Cardiac Disease, Hypertension, Diabetes, Respiratory Disease - Asthmna. Negative: Other - GOUT - Social History Alcohol Use: None Substance Use Type: None Smoking Status (MU): Former Smoker Type: Cigarettes Amount Used/How Often: 3 PPD Length of Time of Smoking/Using Tobacco: 30 Years Have You Smoked in the Last Year: No When Did the Patient Quit Smoking/Using Tobacco: 1976 - Immunization History Most Recent Influenza Vaccination: no Most Recent Tetanus Shot: 2011 Review of Systems All Other Systems Reviewed And Are Negative: Yes Gastrointestinal: Positive: Other - rectal pain worse with coughing, defication Neurological: Positive: Negative Is Patient Immunocompromised?: No Physical Exam Triage Information Reviewed: Yes Appearance: Well-Appearing, No Pain Distress, Well-Nourished Vital Signs: Initial Vital Signs Temp 96.8 F 09/14/18 08:47 Pulse 80 09/14/18 08:47 Resp 16 09/14/18 08:47 BP 112/87 09/14/18 08:47 Pulse Ox 100 09/14/18 08:47 Eyes: Positive: Conjunctiva Clear Abdomen Description: Positive: Nontender, No Organomegaly, Soft, Bruit, Other: - around 6 oclock position ~ 2cm protuding mass from retum noted, + vascular with purple veins noted superficially, TTP, no erythema, no LAD Neurological Exam: Normal Skin Exam: Normal Complaint Male Course/Dx - Course Course Of Treatment: case seen with DR. Corona, likely thrombosed hemorrhoids, OTC's given, follow up with colorectal surgeon for removal. Seen w/ midlevel. - Differential Dx/Diagnosis Provider Diagnoses: hemorrhoid, thrombosed. Discharge - Sign-Out/Discharge Documenting (check all that apply): Patient Departure All imaging exams completed and their final reports reviewed: No Studies - Discharge Plan Condition: Good Disposition: HOME Prescriptions: Docusate Sodium [Colace] 100 mg PO BID #60 capsule Phenyleph/Mineral Oil/Petrolat [Preparation H] 1 oin IA WEEKLY PRN #1 tube PRN Reason: rectal pain Witch Amber PAD* [Tucks*] 1 applic TOPICAL SEE INSTRUCTIONS #1 jar Patient Education Materials: Hemorrhoids (ED) Referrals: Glenis Escobedo MD [Primary Care Provider] - Additional Instructions: - Preperation H for symptoms - STool softeners daily to prevent hard stooling - Increase fluid intake - FOllow up with colorectal surgeon- call on Sunday, physician who did your colonoscopy - Billing Disposition and Condition Condition: GOOD Disposition: Home
== END 2018-09-14 10:09 | disposition home or self-care (01) ==
LOC: UCCORT 08:38
DX: K64.5 Perianal venous thrombosis (principal); Z87.891 Personal history of nicotine dependence
CPT/HCPCS: 99212; G0463

== ENCOUNTER 2019-01-01 18:18 | Emergency (ER) | payer OTHER ==
[2019-01-01 18:39] VITALS: BP 127/71
--- NOTE | 2019-01-01 19:17 | UC ---
Shoulder Pain HPI - HPI Summary HPI Summary: 58-year-old male who slipped on the ice today approximate 5:30 PM injuring his left shoulder. Denies any other injury. - History of Current Complaint Chief Complaint: UCUpperExtremity Stated Complaint: S/P FALL,LEFT SHOULDER INJURY Time Seen by Provider: 01/01/19 19:13 Hx Obtained From: Patient Onset/Duration: Sudden Onset Timing: Constant Severity Initially: Moderate Severity Currently: Moderate Pain Intensity: 8 Character: Aching Aggravating Factor(s): Movement Alleviating Factor(s): Nothing - Allergies/Home Medications Allergies/Adverse Reactions: Allergies Allergy/AdvReac Type Severity Reaction Status Date / Time bee venom protein (honey bee) Allergy Unknown Swelling Verified 01/01/19 18:39 pseudoephedrine Allergy Unknown Hives Verified 01/01/19 18:39 [From Sudafed] Vinegar AdvReac Vomiting Uncoded 01/01/19 18:39 Home Medications: Home Medications metFORMIN* [Glucophage 1000 MG TAB *] 1,000 mg PO DAILY 01/01/19 [History Confirmed 01/01/19] PMH/Surg Hx/FS Hx/Imm Hx - Additional Past Medical History Additional PMH: Patient has had left rotator cuff surgery in the past. Previously Healthy: Yes - Surgical History Surgical History: Yes Surgery Procedure, Year, and Place: Left shoulder repair 2004 ([place]), Hernia repair 1999, cardiac angiogram early to mid ; gastric bypass . Cardiac Stent 2014. RIGHT SHOULDER SX. left shoulder - Family History Known Family History: Positive: Cardiac Disease, Hypertension, Diabetes, Respiratory Disease - Asthmna. Negative: Other - GOUT - Social History Alcohol Use: None Substance Use Type: None Smoking Status (MU): Former Smoker Type: Cigarettes Amount Used/How Often: 3 PPD Length of Time of Smoking/Using Tobacco: 30 Years Have You Smoked in the Last Year: No When Did the Patient Quit Smoking/Using Tobacco: 1976 - Immunization History Most Recent Influenza Vaccination: no Most Recent Tetanus Shot: 2011 Review of Systems All Other Systems Reviewed And Are Negative: Yes Constitutional: Positive: Negative - Recent illness Motor: Positive: Decreased ROM - Increased range of motion because of left shoulder pain. Neurovascular: Positive: Negative Musculoskeletal: Positive: Decreased ROM, Other: - Definite deformity over the before meals joint of the left shoulder. This is chronic according to the daughter and the patient Neurological: Positive: Negative Psychological: Positive: Negative Is Patient Immunocompromised?: No Physical Exam Triage Information Reviewed: Yes Appearance: Well-Appearing, No Pain Distress, Well-Nourished Vital Signs: Initial Vital Signs Temp 99.4 F 01/01/19 18:37 Pulse 71 01/01/19 18:37 Resp 19 01/01/19 18:37 BP 127/71 01/01/19 18:37 Pulse Ox 100 01/01/19 18:37 Vital Signs Reviewed: Yes Neck exam: Normal Neck: Positive: Supple, Nontender - No C-spine tenderness Respiratory Exam: Normal Respiratory: Positive: Chest non-tender, Lungs clear, Normal breath sounds, No respiratory distress, No accessory muscle use Cardiovascular Exam: Normal Musculoskeletal: Positive: Other: - Peripheral pulses neuro sensation and capillary refill. There is an obvious deformity over the left AC joint area which the daughter states he has normally had and the patient states he has normally had although I think it may be a little increased today. Neurological Exam: Normal Neurological: Positive: Alert, Muscle Tone Normal Psychological Exam: Normal Skin Exam: Normal Shoulder Course/Dx - Course Course Of Treatment: He has been fairly comfortable here however has some shoulder pain. He has limited range of motion because of the pain. He does have a history of left rotator cuff surgery. Definite deformity over the AC joint and the x-ray confirms AC joint separation however the daughter and patient state that he is always had a deformity there. They think it may be a little more present tonight. - Differential Dx/Diagnosis Differential Diagnosis/HQI/PQRI: AC Separation Provider Diagnosis: Left shoulder strain Discharge - Sign-Out/Discharge Documenting (check all that apply): Patient Departure All imaging exams completed and their final reports reviewed: No - Discharge Plan Condition: Fair Disposition: HOME Patient Education Materials: Shoulder Sprain (ED) Referrals: Maryam Mayen [Primary Care Provider] - Javad Ardon MD [Medical Doctor] - Additional Instructions: Definite follow-up with the orthopedist in the next day. He may keep ice on the sore area intermittently. He may take Tylenol for pain. Keep the arm sling in place until you're cleared by the orthopedist. Avoid lifting. There appears to be an AC joint separation which appears chronic however it's possible because of your past surgery on the rotator cuff that you have injured the shoulder in such a way as to effect the rotator cuff. - Billing Disposition and Condition Condition: FAIR Disposition: Home
--- NOTE | 2019-01-02 08:06 | UC ---
- EKG/XRAY/CT Xray Comments: wet read correct Course/Dx - Diagnoses Provider Diagnoses: Left shoulder strain Discharge - Sign-Out/Discharge Documenting (check all that apply): Post-Discharge Follow Up All imaging exams completed and their final reports reviewed: Yes - Discharge Plan Condition: Fair Disposition: HOME Patient Education Materials: Shoulder Sprain (ED) Referrals: Maryam Mayen [Primary Care Provider] - Javad Ardon MD [Medical Doctor] - Additional Instructions: Definite follow-up with the orthopedist in the next day. He may keep ice on the sore area intermittently. He may take Tylenol for pain. Keep the arm sling in place until you're cleared by the orthopedist. Avoid lifting. There appears to be an AC joint separation which appears chronic however it's possible because of your past surgery on the rotator cuff that you have injured the shoulder in such a way as to effect the rotator cuff. - Billing Disposition and Condition Condition: FAIR Disposition: Home
== END 2019-01-01 19:56 | disposition home or self-care (01) ==
LOC: UCCORT 18:18
DX: S46.912A Strain of unspecified muscle, fascia and tendon at shoulder and upper arm level, left arm, initial encounter (principal); Z91.030 Bee allergy status; Z91.09 Other allergy status, other than to drugs and biological substances; Z87.891 Personal history of nicotine dependence; Z88.8 Allergy status to other drugs, medicaments and biological substances; W00.9XXA Unspecified fall due to ice and snow, initial encounter; Y92.9 Unspecified place or not applicable
CPT/HCPCS: 99212; G0463

== ENCOUNTER 2019-06-20 17:26 | Emergency (ER) | payer OTHER ==
[2019-06-20 18:54] VITALS: BP 116/71
[2019-06-20] MEDS ORDERED: Tetan/Diph/Pertus SYR(Tdap)* 0.5 ML SYR(BOOSTRIX) use SYR IM ONE (19:12)
--- NOTE | 2019-06-20 19:23 | UC ---
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 PT WAS WORKING AT HOME ON HIS BOAT. " -he cut down the fingernail as far as he could nd rtied toget it out w./ his GF for > 1 hr w/o success and came here - History of Current Complaint Chief Complaint: SOLANGEkin Stated Complaint: RT MIDDLE FINGER SPLINTER Time Seen by Provider: 06/20/19 19:21 Pain Intensity: 6 - Allergies/Home Medications Allergies/Adverse Reactions: Allergies Allergy/AdvReac Type Severity Reaction Status Date / Time bee venom protein (honey bee) Allergy Unknown Swelling Verified 06/20/19 18:42 pseudoephedrine Allergy Unknown Hives Verified 06/20/19 18:42 [From Sudafed] Vinegar AdvReac Vomiting Uncoded 06/20/19 18:42 PMH/Surg Hx/FS Hx/Imm Hx Previously Healthy: Yes Endocrine History: Diabetes Cardiovascular History: Hypertension - Surgical History Surgical History: Yes Surgery Procedure, Year, and Place: Left shoulder repair 2004 ([place]), Hernia repair 1999, cardiac angiogram early to mid ; gastric bypass . Cardiac Stent 2014. RIGHT SHOULDER SX. left shoulder - Family History Known Family History: Positive: Cardiac Disease, Hypertension, Diabetes, Respiratory Disease - Asthmna. Negative: Other - GOUT - Social History Alcohol Use: None Substance Use Type: None Smoking Status (MU): Former Smoker Type: Cigarettes Amount Used/How Often: 3 PPD Length of Time of Smoking/Using Tobacco: 30 Years Have You Smoked in the Last Year: No When Did the Patient Quit Smoking/Using Tobacco: 1976 - Immunization History Most Recent Influenza Vaccination: no Most Recent Tetanus Shot: pt not sure Review of Systems All Other Systems Reviewed And Are Negative: Yes Constitutional: Positive: Negative Skin: Positive: Other - splinter under fingernail Eyes: Positive: Negative ENT: Positive: Negative Respiratory: Positive: Negative Cardiovascular: Positive: Negative Gastrointestinal: Positive: Negative Motor: Negative: Decreased ROM, Weakness Neurovascular: Negative: Decreased Sensation, Decreased Pulses Musculoskeletal: Positive: Negative Neurological: Positive: Negative Psychological: Positive: Negative Is Patient Immunocompromised?: No Physical Exam Triage Information Reviewed: Yes Appearance: Well-Appearing, No Pain Distress, Well-Nourished - very pleasant Vital Signs: Initial Vital Signs Temp 98.5 F 06/20/19 18:44 Pulse 54 06/20/19 18:44 Resp 18 06/20/19 18:44 BP 116/71 06/20/19 18:44 Pulse Ox 100 06/20/19 18:44 Vital Signs Reviewed: Yes Eye Exam: Normal Respiratory Exam: Normal Respiratory: Positive: Lungs clear Cardiovascular Exam: Normal Musculoskeletal Exam: Normal Neurological Exam: Normal Psychological Exam: Normal Skin: Positive: Other - rt middle fingernail w/ small wooden splinter just underneath. he has cut nail down short Upper Extremity Course/Dx - Course Course Of Treatment: rt 3rd digit splinter - attempted to remove w/ pick ups but unable to grasp. Mid level Geovani Bergeron attmepted as well but unsuccessful. Pt agreed to local block to attempt manipulation w/ pain control. unfortunately and emergency came in at that time and his care was delayed. unfortunately he was unable to wait any longer b/c he has to be at work at 4 AM. he is aware of risk of infection, etc. I apologize for the wait and thank him for his patience. -he prefers to go home and use a save on it to draw it out. he is understanding. -recommend he come back later this weekend at his convenience to readdress. - Differential Dx/Diagnosis Differential Diagnosis/HQI/PQRI: Other - FB Provider Diagnosis: Splinter in skin Discharge ED - Sign-Out/Discharge Documenting (check all that apply): Patient Departure All imaging exams completed and their final reports reviewed: No Studies - Discharge Plan Condition: Stable Disposition: HOME Patient Education Materials: Soft Tissue Foreign Body (ED) Referrals: Maryam Mayen [Primary Care Provider] - 4 Days Additional Instructions: Unfortunately we were unable to remove the splinter. You can certainly come back this weekend to attempt numbing your finger so we can remove it when you have more time. I am very sorry for the wait tonight. Please watch for any signs of infection. redness, puss or drainage. - Billing Disposition and Condition Condition: STABLE Disposition: Home
== END 2019-06-20 20:40 | disposition home or self-care (01) ==
LOC: UCCORT 17:26
DX: X58.XXXA Exposure to other specified factors, initial encounter (principal); Y92.9 Unspecified place or not applicable; E11.9 Type 2 diabetes mellitus without complications; I10 Essential (primary) hypertension; Z87.891 Personal history of nicotine dependence; Z23 Encounter for immunization
CPT/HCPCS: 90471; 90715; 99211; G0463

== ENCOUNTER 2019-08-16 11:12 | Emergency (ER) | payer OTHER ==
--- OUTSIDE RECORDS SUMMARY | 2019-08-16 11:27 | XMS REPORT | Continuity of Care Document ---
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 [phone] Problems Active Problems Provider Date Chest pain Tessy Salazar MSN, Onset: 10/30/2011 HAND BENDER Sprain of ankle David Whitley MD Onset: 01/15/2013 Dyspnea Tessy Salazar MSN, Onset: 10/30/2011 HAND BENDER Localized, primary osteoarthritis of David Whitley MD Onset: 01/15/2013 the ankle and/or foot Benign essential hypertension Tessy Salazar MSN, Onset: 10/30/2011 HAND BENDER Radial styloid tenosynovitis Onset: 10/13/2003 Hyperlipidemia Tessy Salazar MSN, Onset: 10/30/2011 HAND BENDER Morbid obesity Aneta Cary MD Onset: 10/30/2011 Full thickness rotator cuff tear Richard Browning D.O. Onset: 09/08/2014 Synovitis and tenosynovitis Richard Browning D.O. Onset: 09/08/2014 Disorder of bursa of shoulder region Richard Browning D.O. Onset: 09/08/2014 Partial Tear Of Rotator Cuff Richrad Browning D.O. Onset: 11/10/2014 Essential hypertension Tessy Salazar, DANITA, Onset: 07/22/2015 HAND BENDER Type 2 diabetes mellitus Tessy Salazar MSN, Onset: 09/20/2015 HAND BENDER Gastroesophageal reflux disease Tessy Salazar MSN, Onset: 2014 HAND BENDER Atherosclerotic heart disease of Tessy Salazar, MSN, Onset: 2014 [place] coronary artery without angina HAND BENDER pectoris Carpal tunnel syndrome Angeles Nagel PA Onset: 10/11/2015 Sprain of shoulder rotator cuff Angeles Nagel PA Onset: 10/11/2015 Lesion of ulnar nerve Angeles Nagel PA Onset: 10/11/2015 Localized, primary osteoarthritis of Angeles Nagel PA Onset: 10/27/2015 the shoulder region Joint ankylosis of the shoulder region Jg Zambrano M.D. Onset: 03/08/2016 Low blood pressure Kelton Bush M.D., Onset: 06/06/2016 [facility] Family history of malignant neoplasm Scot Meade, Onset: 2017 of gastrointestinal tract René Other hemorrhoids Scot Meade, Onset: 09/19/2018 René Accidental fall Onset: 10/06/2015 Shoulder pain Onset: 10/06/2015 Electrocardiogram abnormal Onset: 07/01/2015 Pain in testicle Onset: 05/19/2015 Dizziness Onset: 05/07/2015 Hearing loss Onset: 05/07/2015 Vitamin D deficiency Onset: 12/16/2013 Obesity Onset: 02/11/2013 Steatosis of liver Onset: 07/16/2011 Chronic low back pain Onset: 07/12/2011 Hypertensive disorder Onset: 07/12/2011 Hypertriglyceridemia Onset: 07/12/2011 Type II diabetes mellitus uncontrolled Onset: 07/12/2011 Passive smoker Onset: Chronic neck pain Onset: Social History Type Date Description Comments Sex Unknown Tobacco Use Start: Unknown End: Quit Unknown Cigarette Use Pack Years - 05 Smoking Status Reviewed: 02/17/19 Quit ETOH Use Denies alcohol use Tobacco Use Start: Unknown End: Patient is a former QUIT OVER 25 YEARS Unknown smoker AGO Recreational Drug Use Denies Drug Use Allergies, Adverse Reactions, Alerts Active Allergies Reaction Severity Comments Date Bee Sting 11/24/2015 Vinegar 11/24/2015 Sudafed Urticaria 12/28/2015 Inactive Allergies NKDA 06/20/2012 NKDA 10/21/2015 Medications Active Medications SIG Qnty Indications Ordering Provider Date Lisinopril 1 by mouth 90tabs I10 Marie Tessy 07/30/2019 10mg Tablets every day Yancy, MSN, HAND BENDER I25.10 Atorvastatin Calcium 1 tab by mouth every 90tabs E78.2 Salazar, Tessy 2018 10mg day DANITA Haines, HAND BENDER Tablets Aspirin Ec 1 po qd 30tabs Unknown 81mg Tablets DR Fenofibrate Micronized qd Unknown 134mg Capsules Vitamin D3 1 q am Unknown 2000Unit Tablets Proair HFA 1-2 inhalations Unknown 108(90Base) every 4 hours as mcg/Act Aerosol needed Nitrostat 1 tab sl every 5 min Unknown 0.4mg Tablets x3 chest pain Sub Multivitamin Adult Once daily Unknown Chewtabs M10-Fnigke 1 tab by mouth every Unknown 1mg Chewtabs day wc Metformin HCL 2 PO Daily Unknown 500mg Tablets Calcium 600+D 1 po daily Unknown [id number] Tablets Gabapentin 1-2 tab by mouth at Unknown 300mg Capsules bedtime Lidocaine apply to back every Unknown 4% Cream 4-6 hours as needed for pain Medications Administered in Office Medication SIG Qnty Indications Ordering Provider Date Depomedrol 40mg/1cc Ingrid Love, [facility] 01/09/2019 (methylprednisolone acetate) Injection Depomedrol 40mg/1cc Richa Tolentino MD 07/23/2008 (methylprednisolone acetate) Injection Immunizations CPT Code Status Date Vaccine Lot # [id number] Given 07/29/2015 Tdap injection 84756 Given 07/29/2015 flu vaccination 26389 Given 08/07/2012 flu vaccination 25178 Given 08/29/2011 flu vaccination Vital Signs Date Vital Result Comment 07/30/2019 8:17am BP Systolic Sitting Left Arm 110 mmHg BP Diastolic Sitting Left Arm 52 mmHg Heart Rate 72 /min Respiratory Rate 16 /min Height 67.25 inches 5'7.25" Weight 203.00 lb BMI (Body Mass Index) 31.6 kg/m2 BSA (Body Surface Area) 2.04 m2 [place] body weight in kilograms 68 kg O2 Saturation Level with Exercise 99 % 02/25/2019 8:04am BP Systolic Sitting Left Arm 126 mmHg BP Diastolic Sitting Left Arm 84 mmHg Body Temperature 97.3 F Heart Rate 63 /min Height 67.25 inches 5'7.25" Weight 207.00 lb BMI (Body Mass Index) 32.2 kg/m2 BSA (Body Surface Area) 2.06 m2 [place] body weight in kilograms 68 kg O2 % BldC Oximetry 99 % Results Description No Information Available Procedures Description No Information Available Medical Devices Description No Information Available Encounters Type Date Location Provider Dx Diagnosis Office Visit 07/30/2019 Cardiology Office Tessy Salazar I25.10 Athscl heart 8:20a DANITA Haines, disease of [place] HAND BENDER coronary artery w/o ang pctrs I10 Essential (primary) hypertension E78.5 Hyperlipidemia, unspecified Office Visit 02/25/2019 8:00a Orthopaedic Yahir M75.41 Impingement Office MD Vanda syndrome of right shoulder M19.011 Primary osteoarthritis, right shoulder M75.111 Incomplete rotatr-cuff tear/ruptr of r shoulder, not trauma Assessments Date Code Description Provider 07/30/2019 I25.10 Atherosclerotic heart disease of Tessy Salazar MSN, [place] coronary artery without angina HAND BENDER pectoris 07/30/2019 I10 Essential (primary) hypertension Tessy Salazar, DANITA, HAND BENDER 07/30/2019 E78.5 Hyperlipidemia, unspecified Tessy Salazar, DANITA, HAND BENDER 02/25/2019 M75.41 Impingement syndrome of right Vanda Sinclair MD shoulder 02/25/2019 M19.011 Primary osteoarthritis, right Vanda Sinclair MD shoulder 02/25/2019 M75.111 Incomplete rotator cuff tear or Vanda Sinclair MD rupture of right shoulder, n Plan of Treatment Future Appointment(s):02/05/2020 7:40 am - Tessy Salazar MSN, HAND BENDER at Cardiology [id number]/29/2019 9:00 am - Anthony Gaming DPM at Podiatry [id number] - Tessy Salazar MSN, FNPI25.10 Atherosclerotic heart disease of [place] coronary artery without angina pectorisNew Medication:Lisinopril 10 mg - 1 by mouth every dayComments:I will cut the lisinopril in half secondary to his episodes of lightheadedness.I10 Essential (primary) hypertensionNew Medication:Lisinopril 10 mg - 1 by mouth every dayE78.5 Hyperlipidemia, unspecifiedComments:No changes.AllFollow up:Follow up visit in six months. Functional Status Functional Condition Comment Date Status Glasses Active Dependent with all ADL's Active Mental Status Description No Information Available Referrals Refer to Reason for Referral Status Appt Date Anthony Gaming DPM Created [address] [place] [address] [phone]
[2019-08-16 12:09] VITALS: BP 93/63
--- NOTE | 2019-08-16 12:56 | UC ---
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 [employer]- - History of Current Complaint Chief Complaint: UCBackPain Stated Complaint: LOWER BACK PAIN Time Seen by Provider: 08/16/19 12:54 Hx Obtained From: Patient Onset/Duration: Sudden Onset, Lasting Days - 3, Still Present Timing: Constant Pain Intensity: 7 Pain Scale Used: 0-10 Numeric Back Pain: Is Discrete @ Character: Aching, Stiffness Aggravating Factor(s): Movement Associated Signs And Symptoms: Negative: Abdominal Pain, Flank Pain, Bladder Incontinence, Bowel Incontinence, Pain with Weight Bearing - Allergies/Home Medications Allergies/Adverse Reactions: Allergies Allergy/AdvReac Type Severity Reaction Status Date / Time bee venom protein (honey bee) Allergy Unknown Swelling Verified 08/16/19 12:01 pseudoephedrine Allergy Unknown Hives Verified 08/16/19 12:01 [facility] Vinegar AdvReac Vomiting Uncoded 08/16/19 12:01 PMH/Surg Hx/FS Hx/Imm Hx Previously Healthy: No Endocrine History: Diabetes, Dyslipidemia Cardiovascular History: Hypertension - Surgical History Surgical History: Yes Surgery Procedure, Year, and Place: Left shoulder repair 2004 ([place]), Hernia repair 1999, cardiac angiogram early to mid ; gastric bypass . Cardiac Stent 2014. RIGHT SHOULDER SX. left shoulder - Family History Known Family History: Positive: Cardiac Disease, Hypertension, Diabetes, Respiratory Disease - Asthmna. Negative: Other - GOUT - Social History Occupation: Employed Full-time Lives: With Family Alcohol Use: None Substance Use Type: None Smoking Status (MU): Former Smoker Type: Cigarettes Amount Used/How Often: 3 PPD Length of Time of Smoking/Using Tobacco: 30 Years Have You Smoked in the Last Year: No When Did the Patient Quit Smoking/Using Tobacco: 1976 - Immunization History Most Recent Influenza Vaccination: no Most Recent Tetanus Shot: May 2019 Review of Systems All Other Systems Reviewed And Are Negative: Yes Constitutional: Positive: Negative Skin: Positive: Negative Eyes: Positive: Negative ENT: Positive: Negative Respiratory: Positive: Negative Cardiovascular: Positive: Negative Gastrointestinal: Positive: Negative Genitourinary: Positive: Negative Motor: Positive: Decreased ROM - lumbar spine Neurovascular: Positive: Negative Musculoskeletal: Positive: Arthralgia - lumbar spine Neurological: Positive: Negative Psychological: Positive: Negative Is Patient Immunocompromised?: No Physical Exam Triage Information Reviewed: Yes Appearance: Well-Appearing, Well-Nourished, Pain Distress - guarded movements Vital Signs: Initial Vital Signs Temp 98.4 F 08/16/19 12:03 Pulse 65 08/16/19 12:03 Resp 16 08/16/19 12:03 BP 93/63 08/16/19 12:03 Pulse Ox 99 08/16/19 12:03 Vital Signs Reviewed: Yes Eye Exam: Normal Eyes: Positive: Conjunctiva Clear ENT Exam: Normal ENT: Positive: Normal ENT inspection, Hearing grossly normal. Negative: Nasal congestion, Trismus, Muffled voice, Hoarse voice Neck exam: Normal Neck: Positive: Supple, Nontender Respiratory Exam: Normal Respiratory: Positive: Chest non-tender, No respiratory distress, No accessory muscle use Cardiovascular Exam: Normal Cardiovascular: Positive: RRR, Pulses Normal, Brisk Capillary Refill Abdomen Description: Negative: CVA Tenderness (R), CVA Tenderness (L) Musculoskeletal: Positive: Strength Intact, No Edema, ROM Limited @ - lumbar spine Neurological Exam: Normal Neurological: Positive: Alert, Muscle Tone Normal Psychological Exam: Normal Skin Exam: Normal Back Pain Course/Dx - Course Course Of Treatment: follow with provider, flexeril and tylenol for pain lidoderm or apercreme 4% lidocaine patches, low back exercises- - Differential Dx/Diagnosis Provider Diagnosis: Degenerative disc disease, lumbar Discharge ED - Sign-Out/Discharge Documenting (check all that apply): Patient Departure All imaging exams completed and their final reports reviewed: Yes - Discharge Plan Condition: Stable Disposition: HOME Prescriptions: Cyclobenzaprine TAB* [Flexeril 10 MG TAB*] 10 mg PO TID PRN #15 tab PRN Reason: muscle pain Lidocaine [Aspercreme Lidocaine Max] 4 % EX DAILY #15 pad Patient Education Materials: Acetaminophen (By mouth), Lidocaine Patch (On the skin), Lower Back Exercises (ED), Chronic Back Pain (DC) Referrals: Maryam Mayen [Primary Care Provider] - 1 Week - Billing Disposition and Condition Condition: STABLE Disposition: Home
[2019-08-16] MEDS ORDERED: Ketorolac INJ* 30 MG/ML 1 ML VIAL IM ONE (13:06)
[2019-08-16] MEDS ORDERED: Cyclobenzaprine TAB* 10 MG PO ONE (13:07)
== END 2019-08-16 14:13 | disposition home or self-care (01) ==
LOC: UCCORT 11:12
DX: M51.36 Other intervertebral disc degeneration, lumbar region (principal); I10 Essential (primary) hypertension; E11.9 Type 2 diabetes mellitus without complications; Z91.030 Bee allergy status; Z88.8 Allergy status to other drugs, medicaments and biological substances; Z91.09 Other allergy status, other than to drugs and biological substances; Z87.891 Personal history of nicotine dependence
CPT/HCPCS: 72110; 96372; 99212; A9270-GY; G0463; J1885